=== PATIENT | female | born 1975 | race Caucasian/White ===

== ENCOUNTER 2017-12-12 11:39 | Emergency (ER) | payer OTHER ==
--- OUTSIDE RECORDS SUMMARY | 2017-12-12 11:44 | XMS REPORT ---
:1975 Author Organization e[employer] Care Team Providers Name Role Phone Shiva Mai Provider Role Unavailable Allergies, Adverse Reactions, Alerts Substance Reaction Event Type erythromycin Info Not Available Drug Allergy Problems Problem Type Condition Code Onset Dates Condition Status Assessment Morbid obesity E66.01 Active Problem Morbid obesity E66.01 Active Problem Encounter for preprocedural Z01.810 Active cardiovascular examination Problem Essential hypertension I10 Active Assessment Essential hypertension I10 Active Assessment Encounter for preprocedural Z01.810 Active cardiovascular examination Problem Chest pain, unspecified type R07.9 Active Assessment Chest pain, unspecified type R07.9 Active Medications Medication Code Code Instructions Start End Status Dosage System Date Date hydrochlorothiaz [facility] [place] 2] 87458292478 12.5 mg-20 mg Inactive 1 tab(s) henna-lisinopril orally once a day Metoprolol [facility] [place]NOTE 2] 29264002335 50 mg orally Active 1 tab(s) Succinate ER once a day hydrochlorothiaz [facility] [place]NOTE 2] 23819406287 12.5 mg-10 mg Jun 21, Active 1 tab(s) henna-lisinopril orally once a 2018 day levothyroxine [facility] [place]NOTE 2] 62894942307 100 mcg (0.1 Active 1 tab(s) mg) orally once a day benzonatate [facility] [place]NOTE 2] 19269562641 200 mg orally 3 Active 1 cap(s) times a day Vital Signs Date/Time: Jun 21, 2017 Blood Pressure Diastolic 70 mm Hg Blood Pressure Systolic 110 mm Hg Weight 265 lbs BMI 48.46 Index Height 62 in Results No Known Results Summary Purpose eClinicalWorks Submission
--- OUTSIDE RECORDS SUMMARY | 2017-12-12 11:44 | XMS REPORT | Summary of Care ---
:1975 Author Organization [facility] Address [address] [place] [address]- Encounter HQ Encntr_alias(FIN) [id number] Date(s): 04/11/17 - 04/11/[address] [address]- Discharge Disposition: Home or Self Care Attending Physician: Terence Grove MD Referring Physician: Terence Grove MD Vital Signs No data available for this section Problem List No data available for this section Allergies, Adverse Reactions, Alerts No data available for this section Medications No data available for this section Results No data available for this section Immunizations No data available for this section Procedures No data available for this section Social History No data available for this section Assessment and Plan No data available for this section
--- OUTSIDE RECORDS SUMMARY | 2017-12-12 11:44 | XMS REPORT | Summary of Care ---
:[address] [facility] Address [address] [place] [id number]- Encounter HQ Encntr_alias(FIN) [id number] Date(s): 06/08/17 - 06/08/[address] [address]- Encounter Diagnosis Morbid (severe) obesity due to excess calories (Final) - 06/13/17 Discharge Disposition: Home or Self Care Attending [...]
--- OUTSIDE RECORDS SUMMARY | 2017-12-12 11:44 | XMS REPORT | Summary of Care ---
:1975 Author Organization [facility] Address [address] [place] [address]- Encounter HQ Wilmer(FIN) [id number] Date(s): 06/23/17 - 06/23/[address] [address]- Encounter Diagnosis Gastro-esophageal reflux disease without esophagitis (Final) - 06/29/17 Essential (primary) hypertension (Final) - Hypothyroidism, unspecified (Final) - Discharge Disposition: Home or Self Care Attending Physician: Terence Grove MD Admitting Physician: Terence Grove MD Referring Physician: Terence Grove MD Vital Signs Most recent to oldest 1 2 3 [Reference Range]: Height 154.94 cm 154.94 cm 154.94 cm (06/23/17 12:39 PM) (06/23/17 12:38 PM) (06/23/17 11:04 AM) Weight 261 kg 261 kg 118.636 kg (06/23/17 12:39 PM) (06/23/17 12:38 PM) (06/23/17 11:04 AM) Body Mass Index 108.72 m2 108.72 m2 49.42 m2 (06/23/17 12:39 PM) (06/23/17 12:38 PM) (06/23/17 11:04 AM) Problem List No data available for this section Allergies, Adverse Reactions, Alerts No data available for this section Medications hydrochlorothiazide-lisinopril 12.5 mg-20 mg oral tablet 1 tab, PO, Daily, 0 Refill(s) Start Date: 06/23/17 Status: Orderedlevothyroxine 100 microgram, Daily, 0 Refill(s) Start Date: 06/23/17 Status: Orderedmetoprolol extended release 50 mg, PO, Daily, 0 Refill(s) Start Date: 06/23/17 Status: Ordered Results No data available for this section Immunizations No data available for this section Procedures No data available for this section Social History No data available for this section Assessment and Plan No data available for this section
--- OUTSIDE RECORDS SUMMARY | 2017-12-12 11:44 | XMS REPORT | Summary of Care ---
:1975 Author Organization [facility] Address [address] [place] [address]- Encounter HQ Encntr_aliirina(FIN) [id number] Date(s): 07/11/17 - 07/11/[address] [address]- Encounter Diagnosis Morbid (severe) obesity due to excess calories (Final) - 07/17/17 Body mass index (BMI) 45.0-49.9, adult (Final) - Dietary counseling and surveillance (Final) - Discharge Disposition: Home or Self [...]
--- OUTSIDE RECORDS SUMMARY | 2017-12-12 11:44 | XMS REPORT | Continuity of Care Document ---
:1975 Author Organization Interface Problems Problem Status Onset Classification Date Comments Source Date Reported Morbid obesity due 07/19/19 10/17/2017 [facility] to excess calories [address] [place] [address] Gastro-esophageal 07/01/19 09/29/2017 [facility] reflux disease [address] [place] [address] without esophagitis [id number] GERD Active 06/16/[address] BARIATRIC FOLLOW Active 06/08/19 [facility] UP [address] [place] [address] MORBID OBESITY Active 04/06/[address] Essential 09/29/2017 [facility] hypertension [facility] Hypothyroidism, 09/29/2017 [facility] unspecified [facility] Body mass index 10/17/2017 [facility] 45.0-49.9, adult [facility] Dietary counseling 10/17/2017 [facility] Morbid obesity Active Diagnosis 07/21/2017 [facility] Encounter for Active Problem 07/21/2017 [facility] cardiovascular examination Chest pain, Active Problem 07/21/2017 [facility] unspecified type Care Medications Medication Details Route Status Patient Ordering Order Source Instructions Provider Date Hydrochlorothiazide 1 tab, Active 12.5 MG / Lisinopril PO, 2017 [facility] 20 MG Oral Tablet Daily, 0 [facility] Refill(s) metoprolol extended 50 mg, Active release PO, 2017 [facility] Daily, 0 [facility] Refill(s) Thyroxine 100 Active microgram [address] [place] [address] , Daily, [facility] 0 Refill(s) hydrochlorothiazide-l 1 tab(s) orally Active 12.5 mg-10 mg Brown 06/21/ Comp isinopril orally once a 2018 [facility] hydrochlorothiazide-l 1 tab(s) orally Active 12.5 mg-20 mg [facility] isinopril orally once a [facility] Metoprolol Succinate 1 tab(s) orally Active 50 mg orally [facility] ER once a day [facility] levothyroxine 1 tab(s) orally Active 100 mcg (0.1 [facility] Comp mg) orally Heart once a day Care benzonatate 1 cap(s) orally Active 200 mg orally [facility] Comp 3 times a day [facility] Allergies, Adverse Reactions, Alerts Substance Category Reaction Severity Reaction Status Date Comments Source type Reported erythromycin Adverse Info Not Adverse Active Comp Reaction Available Reaction 8 [facility] Immunizations Immunization Date Given Site Status Last Updated Comments Source Results Order Results Value Reference Date Interpretation Comments Source Name Range Vital Signs Vital Sign Value Date Comments Source BMI Calculated 108.72 06/23/[address] [facility] Weight 261 06/23/[address] [facility] Height 154.94 cm 06/23/[address] [facility] BMI Calculated 108.72 06/23/[address] [facility] Weight 261 06/23/[address] [facility] Height 154.94 cm 06/23/[address] [facility] Weight 118.636 06/23/[address] [facility] Height 154.94 cm 06/23/[address] [facility] BMI Calculated 49.42 06/23/[address] [facility] Diastolic (mm Hg) 70 06/21/2017 [facility] Systolic (mm Hg) 110 06/21/2017 [facility] Weight 265 06/21/2017 [facility] Height 62 06/21/2017 [facility] Encounters Location Location Encounter Encounter Reason Attending ADM DC Status Source Details Type Number For Provider Date Date [facility] [id number] Terence 04/11 04/12 [facility] /2016 [facility] [id number] Terence 06/08 06/09 [facility] /2017 [facility] Bedded [id number] Terence 06/23 06/23 [facility] /2017 [facility] [id number] Terence 07/11 07/12 [facility] /2017 [facility] Procedures Procedure Code Date Perfomer Comments Source
[2017-12-12] MEDS ORDERED: FAMOTIDINE 20 MG/2 ML VIAL IV ONE (12:27)
[2017-12-12] MEDS ORDERED: ONDANSETRON 4 MG/2 ML VIAL ONE (12:27)
[2017-12-12] MEDS ORDERED: NA CHLORIDE 0.9% 1,000 ML ONE (12:27)
[2017-12-12 12:44] LABS: Absolute Lymphocytes (CBC) 2.4 K/uL (0.7-4.9); Absolute Monocytes 0.5 K/uL (0.1-1.3); Absolute Neutrophil 5.9 K/uL (1.8-8.0); Basophils % 1.3 % (0-1.3); Eosinophils % 1.4 % (0-4.4); Hematocrit 39.1 % (36.0-45.0); Lymphocytes % 26.4 % (15.3-44.8); MCH 27.2 pg (27.0-35.0); MCV 82.9 fL (80-100); MPV 8.6 fL (7.6-11.3); Monocytes % 5.3 % (3.3-12.3); RBC Red Blood Cell Count 4.71 M/uL (3.86-4.86)
--- NOTE | 2017-12-12 12:44 | RAD REPORT ---
EXAM DESCRIPTION: US - Abdomen Exam Limited - 12/12/2017 12:39 pm CLINICAL HISTORY: Abd pain;Abdominal distention COMPARISON: No comparisons FINDINGS: The gallbladder demonstrates no gallstones. The gallbladder is partially contracted. No pe richolecystic fluid or gallbladder wall thickening. The common bile duct is normal measuring 4 mm. The liver demonstrates no findings of intrahepatic biliary dilatation. IMPRESSION: Unremarkable examination.
--- NOTE | 2017-12-12 12:44 | EKG ---
Test Date: 2017-12-12 Test Time: 12:18:15 Vehicle Glass Technician: CRISTIAN MEASUREMENT RESULTS: Intervals: Rate: 86 PA: 132 QRSD: 98 QT: 370 QTc: 442 [place]: P: 20 PA: 132 QRS: 19 T: 30 INTERPRETIVE STATEMENTS: Normal sinus rhythm Normal ECG Compared to ECG 02/10/2017 09:48:15 No significant changes Electronically Signed On 12-12-17 12:43:56 CDT by Samson Suarez
[2017-12-12 12:58] LABS: Protime INR 1.04
--- NOTE | 2017-12-12 13:01 | RAD REPORT ---
EXAM DESCRIPTION: RAD - Chest Single View - 12/12/2017 12:53 pm CLINICAL HISTORY: Abdominal distention;Cough Chest pain. COMPARISON: CHEST PA AND LAT 2 VIEW dated 11/03/2014; CHEST SINGLE VIEW dated 10/18/2013 FINDINGS: Portable technique limits examination quality. The lungs are grossly clear. The heart is normal in size. No displaced fractures. IMPRESSION: No acute intrathoracic process suspected.
[2017-12-12 13:15] LABS: ALT/SGPT 34 U/L (12-78); AST/SGOT 31 U/L (15-37); Alkaline Phosphatase 74 U/L (45-117); BUN Blood Urea Nitrogen 13 mg/dL (7-18); Bicarbonate 31 mmol/L (21-32); Bilirubin Direct < 0.1 mg/dL (0-0.2); Bilirubin Total 0.3 mg/dL (0.2-1.0); CKMB Creatine Kinase MB < 1.0 ng/mL (0.3-3.6); Creatine Phosphokinase 65 U/L (26-192); Glucose Level 235 mg/dL (74-106); Lipase 102 U/L (73-393); NT PRO-BNP 44 pg/mL (<125); Protein, Total 7.8 g/dL (6.4-8.2); Sodium Level 139 mmol/L (136-145)
--- NOTE | 2017-12-12 13:30 | ER ---
Nurse's Notes [facility] Name: Haydee Pandey Age: 42 yrs Sex: Female : 1975 Arrival Date: 12/12/2017 Time: 11:44 Bed 23 Private MD: Shiva Howard E Diagnosis: Dizziness and giddiness;Nausea Presentation: 12/12 11:47 Presenting complaint: Patient states: " I have been having dizziness and nausea for a ph few days. I just got off of my menstrual cycle and it was really heavy so I think that may have something to do w/ it." Pt reports intermittent dizziness, nausea, and acid reflux, also reports diarrhea, denies pain. Transition of care: patient was not received from another setting of care. Onset of symptoms was December 12, 2017. Risk Assessment: Do you want to hurt yourself or someone else? Patient reports no desire to harm self or others. Initial Sepsis Screen: Does the patient meet any 2 criteria? No. Patient's initial sepsis screen is negative. Does the patient have a suspected source of infection? No. Patient's initial sepsis screen is negative. Care prior to arrival: None. 11:47 Method Of Arrival: Ambulatory ph 11:47 Acuity: ELA 3 ph STENCIL CUTTER: 11:50 LMP 12/09/2017 ph Historical: - Allergies: 11:50 Erythromycin; ph - Home Meds: 11:50 metoprolol tartrate 50 mg Oral tab 1 tab daily [Active]; levothyroxine 100 mcg tab 1 ph tab once daily [Active]; - PMHx: 11:50 Hypertension; Hypothyroidism; ph - PSHx: 11:50 ; I\\T\\D; ph - Immunization history:: Adult Immunizations unknown. - Social history:: Smoking status: Patient/guardian denies using tobacco. - Ebola Screening: : No symptoms or risks identified at this time. Screenin:20 Abuse screen: Denies threats or abuse. Denies injuries from another. Nutritional ss screening: No deficits noted. Tuberculosis screening: Never had TB. Fall Risk None identified. Assessment: 12:20 General: Appears in no apparent distress. comfortable, Behavior is calm, cooperative, ss Reports feeling ill for fatigue for x 1 week. Denies fever. Pain: Complains of pain in right upper quadrant and epigastric area Pain currently is 7 out of 10 on a pain scale. Quality of pain is described as aching, tender, Pain began 1 week ago, has gotten progressively worse. Is continuous. Neuro: Level of Consciousness is awake, alert, Oriented to person, place, time, situation. Cardiovascular: Heart tones S1 S2 present Capillary refill < 3 seconds is brisk in bilateral fingers Patient's skin is warm and dry. Respiratory: Airway is patent Respiratory effort is even, unlabored, Respiratory pattern is regular, symmetrical. GI: Abdomen is non-distended, obese, Reports nausea, diarrhea. : No signs and/or symptoms were reported regarding the genitourinary system. Denies burning with urination, urinary frequency. EENT: Nares are clear Oral mucosa is moist. Throat is clear. Derm: Skin is intact, is healthy with good turgor, Skin is dry, Skin is pink, warm \\T\\ dry. normal. Musculoskeletal: Circulation, motion, and sensation intact. Range of motion: intact in all extremities. 13:00 Reassessment: Patient appears in no apparent distress at this time. Patient and/or kr2 family updated on plan of care and expected duration. Pain level reassessed. Patient is alert, oriented x 3, equal unlabored respirations, skin warm/dry/pink. Patient states feeling better. Vital Signs: 11:50 BP 153 / 86; Pulse 96; Resp 18; Temp 97.6; Pulse Ox 97% on R/A; Weight 117.93 kg; ph Height 5 ft. 1 in. (154.94 cm); 13:48 BP 122 / 72; Pulse 90; Resp 18; Pulse Ox 98% on R/A; kr2 11:50 Body Mass Index 49.13 (117.93 kg, 154.94 cm) ph ED Course: 11:44 Patient arrived in ED. sb2 11:44 Shiva Howard MD is Private Physician. sb2 11:49 Triage completed. ph 11:51 Arm band placed on. ph 12:01 Flaco Andrews MD is Attending Physician. lexi 12:16 Lo Malave, RN is Primary Nurse. dm5 12:20 Patient has correct armband on for positive identification. Bed in low position. Call ss light in reach. Side rails up X 1. Adult w/ patient. 12:32 EKG done, by technical support specialist. reviewed by Flaco Andrews MD. at1 12:34 Inserted saline lock: 22 gauge in right antecubital area, using aseptic technique. dm5 Blood collected. 12:37 Ultrasound completed. Patient tolerated well. aa4 12:38 US Abdomen Limited In Process Unspecified. EDMS 12:52 X-ray completed. Portable x-ray completed in exam room. Patient tolerated procedure ml well. 12:54 XRAY Chest (1 view) In Process Unspecified. EDMS 13:29 Shiva Howard MD is Referral Physician. [facility] 13:47 No provider procedures requiring assistance completed. IV discontinued, intact, kr2 bleeding controlled, No redness/swelling at site. Pressure dressing applied. Administered Medications: 12:32 Drug: Zofran 4 mg Route: IVP; Site: right antecubital; dm5 13:46 Follow up: Response: Nausea is decreased kr2 12:33 Drug: NS 0.9% 1000 ml Route: IV; Rate: 1 bolus; Site: right antecubital; dm5 13:46 Follow up: Response: No adverse reaction; IV Status: Completed infusion kr2 12:33 Drug: Pepcid 20 mg Route: IVP; Site: right antecubital; dm5 13:46 Follow up: Response: No adverse reaction kr2 13:46 Drug: Meclizine 25 mg Route: PO; kr2 13:47 Follow up: Response: Medication administered at discharge. kr2 Outcome: 13:30 Discharge ordered by . [facility] 13:47 Discharged to home ambulatory, with family. kr2 13:47 Condition: good 13:47 Discharge instructions given to patient, family, Instructed on discharge instructions, follow up and referral plans. medication usage, Demonstrated understanding of instructions, follow-up care, medications, Prescriptions given X 2. 13:53 Patient left the ED. kr2 Signatures: Dispatcher [employer] EDMS Lo Malave, RN RN dmFlaco Escobar MD MD cha Lopez, Melissa ml Frazier, Amanda aa4 Cata Kaur RN RN ss Gonzales, Amanda, share holder EKG Tat1 Eveline Emery RN RN Valentina Watson RN RN kr2 Joseline Dominguez sb2
--- NOTE | 2017-12-12 13:31 | EDPHYS ---
Physician Documentation [facility] Name: Haydee Pandey Age: 42 yrs Sex: Female : 1975 Arrival Date: 12/12/2017 Time: 11:44 Bed 23 Private MD: Shiva Howard E ED Physician Flaco Andrews HPI: 12/12 12:15 This 42 yrs old Female presents to ER via Ambulatory with complaints of lexi Dizziness, Nausea. 12:15 The patient presents with dizziness. Onset: The symptoms/episode began/occurred 5 lexi day(s) ago. Context: occurred at an unknown location. Modifying factors: The symptoms are alleviated by nothing, the symptoms are aggravated by standing up. ZIPPER TRIMMER: 11:50 LMP 12/09/2017 ph Historical: - Allergies: 11:50 Erythromycin; ph - Home Meds: 11:50 metoprolol tartrate 50 mg Oral tab 1 tab daily [Active]; levothyroxine 100 mcg tab 1 ph tab once daily [Active]; - PMHx: 11:50 Hypertension; Hypothyroidism; ph - PSHx: 11:50 ; I\T\D; ph - Immunization history:: Adult Immunizations unknown. - Social history:: Smoking status: Patient/guardian denies using tobacco. - Ebola Screening: : No symptoms or risks identified at this time. ROS: 12:19 Constitutional: Negative for fever, chills, and weight loss, Eyes: Negative for injury, lexi pain, redness, and discharge, ENT: Negative for injury, pain, and discharge, Neck: Negative for injury, pain, and swelling, Cardiovascular: Negative for chest pain, palpitations, and edema, Respiratory: Negative for shortness of breath, cough, wheezing, and pleuritic chest pain, Back: Negative for injury and pain, : Negative for injury, bleeding, discharge, and swelling, MS/Extremity: Negative for injury and deformity, Skin: Negative for injury, rash, and discoloration, Psych: Negative for depression, anxiety, suicide ideation, homicidal ideation, and hallucinations, Allergy/Immunology: Negative for hives, rash, and allergies, Endocrine: Negative for neck swelling, polydipsia, polyuria, polyphagia, and marked weight changes, Hematologic/Lymphatic: Negative for swollen nodes, abnormal bleeding, and unusual bruising. 12:19 Respiratory: Positive for 12:19 Abdomen/GI: Positive for abdominal pain, nausea, vomiting, of the epigastric area and right upper quadrant. 12:19 Neuro: Positive for dizziness. Exam: 12:19 Constitutional: This is a well developed, well nourished patient who is awake, alert, lexi and in no acute distress. Head/Face: Normocephalic, atraumatic. Eyes: Pupils equal round and reactive to light, extra-ocular motions intact. Lids and lashes normal. Conjunctiva and sclera are non-icteric and not injected. Cornea within normal limits. Periorbital areas with no swelling, redness, or edema. ENT: Nares patent. No nasal discharge, no septal abnormalities noted. Tympanic membranes are normal and external auditory canals are clear. Oropharynx with no redness, swelling, or masses, exudates, or evidence of obstruction, uvula midline. Mucous membranes moist. Neck: Trachea midline, no thyromegaly or masses palpated, and no cervical lymphadenopathy. Supple, full range of motion without nuchal rigidity, or vertebral point tenderness. No Meningismus. Chest/axilla: Normal chest wall appearance and motion. Nontender with no deformity. No lesions are appreciated. Cardiovascular: Regular rate and rhythm with a normal S1 and S2. No gallops, murmurs, or rubs. Normal PMI, no JVD. No pulse deficits. Respiratory: Lungs have equal breath sounds bilaterally, clear to auscultation and percussion. No rales, rhonchi or wheezes noted. No increased work of breathing, no retractions or nasal flaring. Back: No spinal tenderness. No costovertebral tenderness. Full range of motion. Female : Normal external genitalia. Skin: Warm, dry with normal turgor. Normal color with no rashes, no lesions, and no evidence of cellulitis. MS/ Extremity: Pulses equal, no cyanosis. Neurovascular intact. Full, normal range of motion. Neuro: Awake and alert, GCS 15, oriented to person, place, time, and situation. Cranial nerves II-XII grossly intact. Motor strength 5/5 in all extremities. Sensory grossly intact. Cerebellar exam normal. Normal gait. Psych: Awake, alert, with orientation to person, place and time. Behavior, mood, and affect are within normal limits. 12:19 Respiratory: the patient does not display signs of respiratory distress, Respirations: normal, Breath sounds: are clear throughout, Respiratory rate: 18 12:19 Abdomen/GI: Inspection: distension, Bowel sounds: normal, Palpation: mild abdominal tenderness, in the epigastric area and right upper quadrant, Liver: no appreciated palpable abnormalities, Hernia: not appreciated. 12:21 Musculoskeletal/extremity: DVT Exam: No signs of deep vein thrombosis. no pain, no lexi swelling, no tenderness, negative Homans' sign noted on exam, no appreciated bluish discoloration, no erythema, no increased warmth. Vital Signs: 11:50 BP 153 / 86; Pulse 96; Resp 18; Temp 97.6; Pulse Ox 97% on R/A; Weight 117.93 kg; ph Height 5 ft. 1 in. (154.94 cm); 13:48 BP 122 / 72; Pulse 90; Resp 18; Pulse Ox 98% on R/A; kr2 11:50 Body Mass Index 49.13 (117.93 kg, 154.94 cm) ph MDM: 12:01 Patient medically screened. [facility] 12:21 Data reviewed: vital signs, nurses notes, lab test result(s), EKG, radiologic studies, [facility] plain films, ultrasound. 12/12 12:15 Order name: Basic Metabolic Panel; Complete Time: 13:28 [facility] 12/12 12:15 Order name: CBC with Diff; Complete Time: 13:28 [facility] 12/12 12:15 Order name: Ckmb; Complete Time: 13:28 [facility] 12/12 12:15 Order name: CPK; Complete Time: 13:28 [facility] 12/12 12:15 Order name: LFT's; Complete Time: 13:28 [facility] 12/12 12:15 Order name: Magnesium; Complete Time: 13:28 [facility] 12/12 12:15 Order name: NT PRO-BNP; Complete Time: 13:28 [facility] 12/12 12:15 Order name: PT-INR; Complete Time: 13:28 [facility] 12/12 12:15 Order name: Ptt, Activated; Complete Time: 13:28 [facility] 12/12 12:15 Order name: Troponin (emerg Dept Use Only); Complete Time: 13:28 [facility] 12/12 12:15 Order name: Lipase; Complete Time: 13:28 [facility] 12/12 12:15 Order name: Urine Culture [facility] 12/12 12:26 Order name: Urine Dipstick--Ancillary (enter results) [facility] 12/12 12:28 Order name: Urine --Ancillary (enter results) [facility] 12/12 12:15 Order name: XRAY Chest (1 view); Complete Time: 13:28 [facility] 12/12 12:15 Order name: EKG; Complete Time: 12:16 [facility] 12/12 12:15 Order name: Cardiac monitoring; Complete Time: 12:34 [facility] 12/12 12:15 Order name: EKG - Nurse/Tech; Complete Time: 12:34 [facility] 12/12 12:15 Order name: IV Saline Lock; Complete Time: 12:34 [facility] 12/12 12:15 Order name: Labs collected and sent; Complete Time: 12:34 [facility] 12/12 12:15 Order name: O2 Per Protocol; Complete Time: 12:34 [facility] 12/12 12:15 Order name: O2 Sat Monitoring; Complete Time: 12:34 [facility] 12/12 12:15 Order name: Urine Dipstick-Ancillary (obtain specimen); Complete Time: 12:17 [facility] 12/12 12:15 Order name: US Abdomen Limited; Complete Time: 13:28 [facility] Administered Medications: 12:32 Drug: Zofran 4 mg Route: IVP; Site: right antecubital; dm5 13:46 Follow up: Response: Nausea is decreased kr2 12:33 Drug: NS 0.9% 1000 ml Route: IV; Rate: 1 bolus; Site: right antecubital; dm5 13:46 Follow up: Response: No adverse reaction; IV Status: Completed infusion kr2 12:33 Drug: Pepcid 20 mg Route: IVP; Site: right antecubital; dm5 13:46 Follow up: Response: No adverse reaction kr2 13:46 Drug: Meclizine 25 mg Route: PO; kr2 13:47 Follow up: Response: Medication administered at discharge. kr2 Disposition: 12/12/17 13:30 Discharged to Home. Impression: Dizziness and giddiness, Nausea. - Condition is Stable. - Discharge Instructions: Dizziness, Nausea and Vomiting, Adult, Nausea, Adult, Aspirin and Your Heart, Dizziness, [id number]. - Prescriptions for Meclizine 25 mg Oral Tablet - take 1 tablet by ORAL route every 8 hours As needed; 30 tablet. Zofran 4 mg Oral Tablet - take 1 tablet by ORAL route every 12 hours As needed; 20 tablet. - Medication Reconciliation Form, Thank You Letter, Antibiotic Education, Prescription Opioid Use, Work release form form. - Follow up: Shiva Howard MD; When: 2 - 3 days; Reason: Recheck today's complaints, Continuance of care, Re-evaluation by your physician. - Problem is new. - Symptoms have improved. Signatures: Dispatcher [employer] EDMS Lo Malave, RN RN dm5 Flaco Andrews MD MD cha Hall, Patricia RN RN ph Valentina Sands RN RN kr2 Corrections: (The following items were deleted from the chart) 13:30 13:30 12/12/2017 13:30 Discharged to Home. Impression: Dizziness and giddiness; Nausea; lexi Obesity, unspecified. Condition is Stable. Forms are Medication Reconciliation Form, Thank You Letter, Antibiotic Education, Prescription Opioid Use. Follow up: Shiva Howard; When: 2 - 3 days; Reason: Recheck today's complaints, Continuance of care, Re-evaluation by your physician. Problem is new. Symptoms have improved. lexi 13:53 13:30 12/12/2017 13:30 Discharged to Home. Impression: Dizziness and giddiness; Nausea. kr2 Condition is Stable. Forms are Medication Reconciliation Form, Thank You Letter, Antibiotic Education, Prescription Opioid Use. Follow up: Shiva Howard; When: 2 - 3 days; Reason: Recheck today's complaints, Continuance of care, Re-evaluation by your physician. Problem is new. Symptoms have improved. lexi
[2017-12-12] MEDS ORDERED: MECLIZINE HCL 12.5 MG TAB ONE (13:38)
[2017-12-12 13:59] VITALS: TEMP 97.6
[2017-12-12 14:00] VITALS: BP 122/72; O2SAT 98
[2017-12-12 16:00] LABS: Urine Blood 2+ (NEG); Urine Glucose NEGATIVE (NEG); Urine Protein NEGATIVE (NEG); Urine Specific Gravity >1.030 (1.005-1.030); Urine pH 5.5 (5.0-7.0)
== END 2017-12-12 13:53 | disposition home or self-care (01) ==
LOC: ER 11:39
DX: R11.0 Nausea (principal); I10 Essential (primary) hypertension; E03.9 Hypothyroidism, unspecified; Z88.3 Allergy status to other anti-infective agents
CPT/HCPCS: 36415; 71045; 76705; 80048; 80076; 81003; 81025; 82550; 82553; 83690; 83735; 83880; 84484; 85025; 85610; 85730; 87086; 87088; 93005; 96361; 96374; 96375; 99284; J2405; J7030

== ENCOUNTER 2018-02-21 10:46 | Observation (INO) | payer OTHER ==
--- OUTSIDE RECORDS SUMMARY | 2018-02-21 10:49 | XMS REPORT ---
[...] End Status Dosage System Date Date hydrochlorothiaz [facility] [id number] 12.5 mg-20 mg Inactive 1 tab(s) henna-lisinopril orally once a day Metoprolol [facility] [id number] 50 mg orally Active 1 tab(s) Succinate ER once a day hydrochlorothiaz [facility] [id number] 12.5 mg-10 mg Jun 21, Active 1 tab(s) henna-lisinopril orally once a 2018 day levothyroxine [facility] [id number] 100 mcg (0.1 Active 1 tab(s) mg) orally once a day benzonatate [facility] [id number] 200 mg orally 3 Active 1 cap(s) times a day Vital Signs Date/Time: Jun 21, 2017 Blood Pressure Diastolic 70 mm Hg Blood Pressure Systolic 110 mm Hg Weight 265 lbs BMI 48.46 Index Height 62 in Results No Known Results Summary Purpose eClinicalWorks Submission
--- OUTSIDE RECORDS SUMMARY | 2018-02-21 10:49 | XMS REPORT | Continuity of Care Document ---
:1975 Author Organization Interface Problems Problem Status Onset Classification Date Comments Source Date Reported Morbid obesity due 07/19/19 10/17/2017 [facility] to excess calories [address] [place] [address] Gastro-esophageal 07/01/19 09/29/2017 [facility] reflux disease [address] [place] [address] without esophagitis [id number] Active 06/16/[address] BARIATRIC FOLLOW Active 06/08/19 [facility] UP [address] [place] [address] MORBID OBESITY Active 04/06/[address] Body mass index 10/17/2017 [facility] 45.0-49.9, adult [facility] Dietary counseling 10/17/2017 [facility] and surveillance [facility] Essential 09/29/2017 [facility] hypertension [facility] Hypothyroidism, 09/29/2017 [facility] unspecified [facility] Morbid obesity Active Diagnosis 07/21/2017 [facility] Encounter for Active Problem 07/21/2017 [facility] preprocedural Care cardiovascular examination Chest pain, Active Problem 07/21/2017 [facility] unspecified type Care Medications Medication Details Route Status Patient Ordering Order Source Instructions Provider Date Hydrochlorothiazide 1 tab, Active 12.5 MG / Lisinopril PO, 2017 [facility] 20 MG Oral Tablet Daily, 0 [facility] Refill(s) metoprolol extended 50 mg, Active release PO, 2017 [facility] Daily, 0 [facility] Refill(s) Thyroxine 100 Active microgram [address] [place] [address] , Daily, [facility] 0 Refill(s) hydrochlorothiazide-l 1 tab(s) orally Active 12.5 mg-10 mg Brown 06/21/ Comp isinopril orally once a 2018 [facility] hydrochlorothiazide-l 1 tab(s) orally Active 12.5 mg-20 mg [facility] isinopril orally once a Heart day [...] Comments Source BMI Calculated 108.72 06/23/2017 [facility] Weight 261 06/23/2017 [facility] Height 154.94 cm 06/23/2017 [facility] BMI Calculated 108.72 06/23/2017 [facility] Weight 261 06/23/2017 [facility] Height 154.94 cm 06/23/2017 [facility] Weight 118.636 06/23/2017 [facility] Height 154.94 cm 06/23/2017 [facility] BMI Calculated 49.42 06/23/2017 [facility] Diastolic (mm Hg) 70 06/21/2017 [facility] Systolic (mm Hg) 110 06/21/2017 [facility] Weight 265 06/21/2017 [facility] Height 62 06/21/2017 [facility] Encounters Location Location Encounter Encounter Reason Attending ADM DC Status Source Details Type Number For Provider Date Date [facility] [id number] Terence 04/11 04/12 [facility] /2016 [facility] Outpatient [id number] Terence 06/08 06/09 [facility] /2017 [facility] Bedded [id number] Terence 06/23 06/23 [facility] Perfceto /2017 [facility] Outpatient [id number] Terence 07/11 07/12 [facility] /2017 [facility] Procedures Procedure Code Date Perfomer Comments Source
[2018-02-21] MEDS ORDERED: ASPIRIN 81 MG CHEWABLE TABLET ONE (11:17)
[2018-02-21] MEDS ORDERED: METOPROLOL TAR 25 MG TAB ONE (11:18)
[2018-02-21] MEDS ORDERED: METOPROLOL TARTRATE 5 MG/5 ML INJ IV ONE ×2 (11:18→13:41)
[2018-02-21 11:30] LABS: Absolute Lymphocytes (CBC) 2.3 K/uL (0.7-4.9); Absolute Monocytes 0.6 K/uL (0.1-1.3); Absolute Neutrophil 4.9 K/uL (1.8-8.0); Eosinophils % 2.4 % (0-4.4); Hematocrit 39.5 % (36.0-45.0); Lymphocytes % 28.7 % (15.3-44.8); MCH 27.2 pg (27.0-35.0); MCV 82.9 fL (80-100); MPV 8.7 fL (7.6-11.3); Monocytes % 7.4 % (3.3-12.3); RBC Red Blood Cell Count 4.76 M/uL (3.86-4.86)
[2018-02-21 11:31] LABS: Protime INR 1.01
[2018-02-21 11:41] LABS: ALT/SGPT 45 U/L (12-78); AST/SGOT 31 U/L (15-37); Albumin 3.3 g/dL (3.4-5.0); Alkaline Phosphatase 75 U/L (45-117); BUN Blood Urea Nitrogen 13 mg/dL (7-18); Bicarbonate 29 mmol/L (21-32); Bilirubin Direct < 0.1 mg/dL (0-0.2); Bilirubin Total 0.3 mg/dL (0.2-1.0); Glucose Level 103 mg/dL (74-106); Magnesium 2.1 mg/dL (1.8-2.4); NT PRO-BNP 34 pg/mL (<125); Potassium 3.7 mmol/L (3.5-5.1); Sodium Level 140 mmol/L (136-145); Troponin (Emerg Dept Use Only) < 0.02 ng/mL (0.0-0.045)
[2018-02-21] MEDS ORDERED: NITROGLYCERIN 0.4 MG/TAB SL ONE (12:11)
--- NOTE | 2018-02-21 12:19 | RAD REPORT ---
EXAM DESCRIPTION: RAD - Chest Single View - 02/21/2018 11:36 am CLINICAL HISTORY: Chest pain COMPARISON: February 11 TECHNIQUE: AP portable chest image was obtained 1132 hours . FINDINGS: Lung volumes are low. No peripheral mass, consolidation or failure. Trachea is midline. He art and vasculature are normal. No measurable pleural effusion and no pneumothorax. No acute bony abn ormality seen. No acute aortic findings suspected. IMPRESSION: No acute cardiopulmonary process. No significant change from comparison.
--- NOTE | 2018-02-21 12:42 | ER ---
Nurse's Notes [facility] Name: Haydee Pandey Age: 42 yrs Sex: Female : 1975 Arrival Date: 02/21/2018 Time: 10:48 Bed 16 Private MD: Shiva Howard E Diagnosis: Chest pain, unspecified Presentation: 02/21 10:50 Presenting complaint: Patient states: upper midsternal/left sided chest pain with sv radiation to left neck and arm started this morning. Denies SOB, c/o nausea. Pt stated that she has been out of her Metoprolol for a week. Transition of care: patient was not received from another setting of care. Onset of symptoms was February 21, 2018. Care prior to arrival: None. 10:50 Method Of Arrival: Wheelchair sv 10:50 Acuity: ELA 2 sv 11:21 Risk Assessment: Do you want to hurt yourself or someone else? Patient reports no la1 desire to harm self or others. Initial Sepsis Screen: Does the patient meet any 2 criteria? No. Patient's initial sepsis screen is negative. Does the patient have a suspected source of infection? No. Patient's initial sepsis screen is negative. Triage Assessment: 11:04 General: Appears in no apparent distress. Behavior is calm, cooperative. Pain: la1 Complains of pain in chest and left arm. Neuro: Level of Consciousness is awake, alert, obeys commands, Oriented to person, place, time, situation. Cardiovascular: Denies shortness of breath, syncope, vomiting, Heart tones S1 S2 present. Cardiovascular: Rhythm is sinus rhythm Chest pain began 4 hours prior to arrival. Respiratory: Airway is patent Breath sounds are clear bilaterally. GI: No signs and/or symptoms were reported involving the gastrointestinal system. : No signs and/or symptoms were reported regarding the genitourinary system. Historical: - Allergies: 10:57 Erythromycin; sv - PMHx: 10:57 Hypertension; Hypothyroidism; sv - PSHx: 10:57 ; I\T\D; sv - Immunization history:: Adult Immunizations up to date, Flu vaccine is not up to date. - Social history:: Smoking status: Patient/guardian denies using tobacco, Patient/guardian denies using alcohol. - Ebola Screening: : No symptoms or risks identified at this time. Screenin:03 Abuse screen: Denies threats or abuse. Nutritional screening: On. Tuberculosis la1 screening: No symptoms or risk factors identified. Fall Risk None identified. Assessment: 11:20 General: Appears in no apparent distress. Behavior is calm, cooperative. Pain: la1 Complains of pain in chest Pain radiates to left arm Pain began 4 hours ago. Neuro: Level of Consciousness is awake, alert, obeys commands, Oriented to person, place, time, situation. Cardiovascular: Heart tones S1 S2 present Capillary refill < 3 seconds Patient's skin is warm and dry. Rhythm is sinus rhythm. Respiratory: Airway is patent Respiratory effort is even, unlabored, Respiratory pattern is regular, symmetrical, Breath sounds are clear bilaterally. GI: No signs and/or symptoms were reported involving the gastrointestinal system. : No signs and/or symptoms were reported regarding the genitourinary system. Vital Signs: 10:57 BP 170 / 103; Pulse 92; Resp 20; Temp 98.1; Pulse Ox 97% ; Weight 120.2 kg; Height 5 sv ft. 2 in. (157.48 cm); Pain 7/10; 11:51 BP 156 / 106; Pulse 85; Resp 16; Pulse Ox 98% on R/A; la1 13:31 BP 155 / 103; Pulse 78; Resp 16; Pulse Ox 98% on R/A; la1 13:56 BP 146 / 94; Pulse 79; Resp 16; Pulse Ox 98% on R/A; la1 10:57 Body Mass Index 48.47 (120.20 kg, 157.48 cm) sv ED Course: 10:48 Patient arrived in ED. mr 10:49 Shiva Howard MD is Private Physician. mr 10:50 Arm band placed on Patient placed in an exam room, on pulse oximetry. sv 10:55 Flaco Brewster PA is PHCP. cp 10:55 Flaco Andrews MD is Attending Physician. cp 10:56 Triage completed. sv 10:59 Bhupinder Rosales, HUI is Primary Nurse. la1 11:04 Placed in gown. Bed in low position. Call light in reach. Side rails up X 1. Cardiac la1 monitor on. Pulse ox on. NIBP on. 11:04 Adult w/ patient. Pillow given. mh5 11:06 EKG done, by nuclear medicine pet ct technologist. reviewed by Flaco DIAS. dt2 11:17 Initial lab(s) drawn, by me, sent to lab. Inserted saline lock: 22 gauge in left 5 antecubital area, using aseptic technique. Blood collected. 11:21 No provider procedures requiring assistance completed. Patient maintains SpO2 la1 saturation greater than 95% on room air. 11:36 XRAY Chest (1 view) In Process Unspecified. EDMS 12:40 Radhika Moncada MD is Hospitalizing Provider. cp 13:57 Inserted saline lock: 22 gauge in right forearm, using aseptic technique. la1 14:07 Patient admitted, IV remains in place. la1 Administered Medications: 11:20 Drug: Metoprolol 25 mg Route: PO; la1 11:45 Follow up: Response: No adverse reaction la1 11:20 Drug: Lopressor 5 mg Route: IVP; Site: left antecubital; la1 11:45 Follow up: Response: No adverse reaction; Blood pressure is lowered la1 11:20 Drug: Aspirin Chewable Tablet 324 mg Route: PO; la1 11:46 Follow up: Response: No adverse reaction la1 12:06 Drug: Nitroglycerin 0.4 mg Route: Sublingual; la1 12:16 Follow up: Response: No adverse reaction; Pain is decreased la1 13:51 Drug: Lopressor 5 mg Route: IVP; Site: right forearm; la1 13:58 Follow up: Response: No adverse reaction; Blood pressure is lowered la1 Outcome: 12:41 Decision to Hospitalize by Provider. cp 14:08 Admitted to Tele accompanied by tech, via wheelchair, room 409, with chart. la1 14:08 Condition: stable 14:08 Instructed on the need for admit. 14:08 Patient left the ED. la1 Signatures: Dispatcher [employer] EDMS Roshni Perrin RN RN sv Rivera, Mary mr Attema, Lee, RN RN la1 Flaco Brewster PA PA cp [place] [id number] [address] Hess dt2
--- NOTE | 2018-02-21 12:42 | EDPHYS ---
Physician Documentation [facility] Name: Haydee Pandey Age: 42 yrs Sex: Female : 1975 Arrival Date: 02/21/2018 Time: 10:48 Bed 16 Private MD: Shiva Howard E ED Physician Flaco Andrews HPI: 02/21 11:05 This 42 yrs old Female presents to ER via Wheelchair with complaints of Chest cp Pain. 11:05 The patient or guardian reports chest pain that is located primarily in the anterior cp chest wall, left. 11:05 Onset: this morning. The pain radiates to the left arm, left jaw. Associated signs and cp symptoms: Pertinent negatives: abdominal pain, cough, lower extremity pain, lower extremity swelling, palpitations, shortness of breath, syncope, vomiting. The chest pain is described as aching. Duration: The patient or guardian reports a single episode, that is still ongoing. Historical: - Allergies: 10:57 Erythromycin; sv - PMHx: 10:57 Hypertension; Hypothyroidism; sv - PSHx: 10:57 ; I\T\D; sv - Immunization history:: Adult Immunizations up to date, Flu vaccine is not up to date. - Social history:: Smoking status: Patient/guardian denies using tobacco, Patient/guardian denies using alcohol. - Ebola Screening: : No symptoms or risks identified at this time. ROS: 11:10 Constitutional: Negative for body aches, chills, fever, poor PO intake. cp 11:10 Eyes: Negative for injury, pain, redness, and discharge. cp 11:10 ENT: Negative for drainage from ear(s), ear pain, sore throat, difficulty swallowing, difficulty handling secretions, hoarseness. 11:10 Neck: Negative for pain with movement, pain at rest, stiffness, tenderness. 11:10 Cardiovascular: Positive for chest pain, of the left side, Negative for edema, palpitations. 11:10 Respiratory: Negative for cough, shortness of breath, wheezing. 11:10 Abdomen/GI: Negative for abdominal pain, nausea, vomiting, and diarrhea, constipation, black/tarry stool, rectal bleeding. 11:10 Back: Negative for pain at rest, pain with movement, radiated pain. 11:10 Skin: Negative for cellulitis, rash. 11:10 Neuro: Negative for altered mental status, dizziness, headache, syncope, near syncope, weakness. 11:10 All other systems are negative. Exam: 11:10 ECG was reviewed by the Attending Physician. cp 11:15 Constitutional: The patient appears in no acute distress, alert, awake, cp non-diaphoretic, non-toxic, well developed, well nourished, obese. 11:15 Head/Face: Normocephalic, atraumatic. cp 11:15 Eyes: Periorbital structures: appear normal, Conjunctiva: normal, no exudate, no injection, Sclera: no appreciated abnormality, Lids and lashes: appear normal, bilaterally. 11:15 ENT: External ear(s): are unremarkable, Nose: is normal, Mouth: Lips: moist, Oral mucosa: pink and intact, moist, Posterior pharynx: is normal, airway is patent, no erythema, no exudate, Voice: is normal. 11:15 Neck: ROM/movement: is normal, is supple, without pain, no range of motions limitations, no meningismus, no nuchal rigidity. 11:15 Chest/axilla: Inspection: normal, Palpation: crepitus, is not appreciated, tenderness, that is mild, of the anterior aspect of left upper chest. 11:15 Cardiovascular: Rate: normal, Rhythm: regular, Pulses: Pulses are 2+ in right radial artery and left radial artery. Heart sounds: murmur, not appreciated, Edema: is not appreciated, JVD: is not appreciated. 11:15 Respiratory: the patient does not display signs of respiratory distress, Respirations: normal, no use of accessory muscles, no retractions, no splinting, no tachypnea, labored breathing, is not present, Breath sounds: are clear throughout, no decreased breath sounds, no stridor, no wheezing. 11:15 Abdomen/GI: Inspection: abdomen appears normal, Bowel sounds: active, all quadrants, Palpation: abdomen is soft and non-tender, in all quadrants, rebound tenderness, is not appreciated, voluntary guarding, is not appreciated, involuntary guarding, is not appreciated. 11:15 Back: pain, is absent, ROM is normal. 11:15 Skin: cellulitis, is not appreciated, no rash present. 11:15 Neuro: Orientation: to person, place \T\ time. Mentation: is normal, Cerebellar function: is grossly normal, Motor: moves all fours, strength is normal, Sensation: is normal. Vital Signs: 10:57 BP 170 / 103; Pulse 92; Resp 20; Temp 98.1; Pulse Ox 97% ; Weight 120.2 kg; Height 5 sv ft. 2 in. (157.48 cm); Pain 7/10; 11:51 BP 156 / 106; Pulse 85; Resp 16; Pulse Ox 98% on R/A; la1 13:31 BP 155 / 103; Pulse 78; Resp 16; Pulse Ox 98% on R/A; la1 13:56 BP 146 / 94; Pulse 79; Resp 16; Pulse Ox 98% on R/A; la1 10:57 Body Mass Index 48.47 (120.20 kg, 157.48 cm) sv MDM: 10:55 Patient medically screened. cp 11:30 Differential diagnosis: acute myocardial infarction, acute pericarditis, chest wall cp pain, costochondritis, myocarditis, pleurisy, pneumonia, pneumothorax, pulmonary embolus, stable angina, unstable angina. 12:30 The patient was given aspirin in the Emergency Department. cp 12:30 Data reviewed: vital signs, nurses notes, lab test result(s), EKG, radiologic studies, cp plain films, and as a result, I will admit patient. Test interpretation: by ED physician or midlevel provider: ECG, plain radiologic studies. Response to treatment: the patient's symptoms have markedly improved after treatment. 12:31 Physician consultation: Radhika Moncada MD was called at 12:32, was contacted at 12:32, cp regarding admission, to the telemetry unit. patient's condition. 02/21 11:08 Order name: Basic Metabolic Panel; Complete Time: 11:47 cp 02/21 11:08 Order name: CBC with Diff; Complete Time: 11:47 cp 02/21 11:08 Order name: LFT's; Complete Time: 11:47 cp 02/21 11:08 Order name: Magnesium; Complete Time: 11:47 cp 02/21 11:08 Order name: NT PRO-BNP; Complete Time: 11:47 cp 02/21 11:08 Order name: PT-INR; Complete Time: 11:47 cp 02/21 10:55 Order name: EKG; Complete Time: 10:56 sv 02/21 11:08 Order name: Troponin (emerg Dept Use Only); Complete Time: 11:47 cp 02/21 11:48 Interpretation: Reviewed. cp 02/21 11:08 Order name: XRAY Chest (1 view); Complete Time: 12:29 cp 02/21 10:55 Order name: EKG - Nurse/Tech; Complete Time: 10:59 sv 02/21 11:08 Order name: Cardiac monitoring; Complete Time: 11:20 cp 02/21 11:08 Order name: IV Saline Lock; Complete Time: 11:20 cp 02/21 11:08 Order name: Labs collected and sent; Complete Time: 11:20 cp 02/21 11:08 Order name: O2 Per Protocol; Complete Time: 11:20 cp 02/21 11:08 Order name: O2 Sat Monitoring; Complete Time: 11:20 cp EC:10 Rate is 93 beats/min. Rhythm is regular. MD interval is normal. QRS interval is normal. cp QT interval is normal. Interpreted by me. Reviewed by me. Administered Medications: 11:20 Drug: Metoprolol 25 mg Route: PO; la1 11:45 Follow up: Response: No adverse reaction la1 11:20 Drug: Lopressor 5 mg Route: IVP; Site: left antecubital; la1 11:45 Follow up: Response: No adverse reaction; Blood pressure is lowered la1 11:20 Drug: Aspirin Chewable Tablet 324 mg Route: PO; la1 11:46 Follow up: Response: No adverse reaction la1 12:06 Drug: Nitroglycerin 0.4 mg Route: Sublingual; la1 12:16 Follow up: Response: No adverse reaction; Pain is decreased la1 13:51 Drug: Lopressor 5 mg Route: IVP; Site: right forearm; la1 13:58 Follow up: Response: No adverse reaction; Blood pressure is lowered la1 Disposition: 02/22 06:45 Co-signature as Attending Physician, Flaco Andrews MD I agree with the assessment and lexi plan of care. Disposition: 02/21/18 12:41 Hospitalization ordered by Radhika Moncada for Observation. Preliminary diagnosis is Chest pain, unspecified. - Bed requested for Telemetry/MedSurg (observation). - Status is Observation. la1 - Condition is Stable. - Problem is new. - Symptoms have improved. UTI on Admission? No Signatures: Dispatcher [employer] EDRoshni Patel RN Flaco Greer MD MD cha Attema, Lee, RN RN la1 Flaco Brewster PA PA cp Botello, Elizabeth eb Corrections: (The following items were deleted from the chart) 02/21 13:47 12:41 Hospitalization Ordered by Radhika Moncada MD for Observation. Preliminary diagnosis eb is Chest pain, unspecified. Bed requested for Telemetry/MedSurg (observation). Status is Observation. Condition is Stable. Problem is new. Symptoms have improved. UTI on Admission? No. cp 14:08 13:47 02/21/2018 12:41 Hospitalization Ordered by Radhika Moncada MD for Observation. la1 Preliminary diagnosis is Chest pain, unspecified. Bed requested for Telemetry/MedSurg (observation). Status is Observation. Condition is Stable. Problem is new. Symptoms have improved. UTI on Admission? No. eb
--- NOTE | 2018-02-21 15:16 | EKG ---
Test Date: 2018-02-21 Test Time: 11:02:06 Broadcast Field Supervisor: SURENDRA MEASUREMENT RESULTS: Intervals: Rate: 93 RI: 132 QRSD: 96 QT: 368 QTc: 457 [place]: P: 3 RI: 132 QRS: -20 T: 12 INTERPRETIVE STATEMENTS: Normal sinus rhythm Normal ECG Compared to ECG 12/12/2017 12:18:15 No significant changes Electronically Signed On 02-21-18 15:16:21 CDT by Shravan Silveira
[2018-02-21] MEDS ORDERED: ONDANSETRON 4 MG/2 ML VIAL IV PRN (16:28)
[2018-02-21] MEDS ORDERED: ACETAMINOPHEN 500 MG TAB PO PRN (16:28)
[2018-02-21 19:47] VITALS: BMI 51.9
[2018-02-21 20:19] LABS: CKMB Creatine Kinase MB < 1.0 ng/mL (0.3-3.6); Creatine Phosphokinase 81 U/L (26-192)
[2018-02-21 20:20] LABS: Urine Appearance CLEAR; Urine Bilirubin NEGATIVE (NEG); Urine Blood NEGATIVE (NEG); Urine Color YELLOW; Urine Glucose TRACE (NEG); Urine Protein TRACE (NEG); Urine Specific Gravity 1.025 (1.005-1.030); Urine pH 6.5 (5.0-7.0)
[2018-02-21 20:55] LABS: Urine Microscopic Reflex ORDER UMIC
[2018-02-21 20:58] LABS: Urine Bacteria <20 /HPF (<20); Urine Culture Reflex Order NOT NEEDED; Urine Mucus 1+ /HPF (NONE SEEN); Urine RBC <5 /HPF (NONE SEEN)
[2018-02-21] MEDS ORDERED: POTASSIUM CL SA 10 MEQ TAB PO ONE (21:00)
--- NOTE | 2018-02-21 21:59 | P.HP ---
Certification for Inpatient Patient admitted to: Observation With expected LOS: <2 Midnights Practitioner: I am a practitioner with admitting privileges, knowledge of patient current condition, hospital course, and medical plan of care. Services: Services provided to patient in accordance with Admission requirements found in Title 42 Section 412.3 of the Code of Federal Regulations Patient History Date of Service: 02/21/18 Reason for admission: Chest pain History of Present Illness: Ms. Pandey is a 42-year-old woman with history of hypertension, obesity, hypothyroidism, who came to ER complaining of chest pain. Her pain started this morning, it was constant with periods of exacerbation, maximal intensity 7/10, pressure-like located substernal radiating to neck and left arm. The patient states that she did not take her metoprolol for the last week because she did not fill the prescription. She has had nausea but no vomiting. She denied any shortness of breath or dizziness associated with the pain. In ER she has received nitro sublingual, improving significantly her symptoms. Initial troponin I is negative, EKG shows no ST-T abnormalities. At time of my encounter she was chest pain-free. Allergies erythromycin base [Erythromycin Base] Allergy (Mild, Verified 03/23/12 17:11) Itching/Hives/Rash Erythromycin Allergy (Uncoded 10/12/14 13:10) Rash Home Medications: Levothyroxine [Synthroid] 100 mcg PO [id number] 02/21/18 Metoprolol Tartrate 1 tab PO DAILY 02/21/18 - Past Medical/Surgical History Has patient received pneumonia vaccine in the past: No -: HTN -: Hypothyroidism -: Obesity -: -: tubal ligation -: debridement of lower abdomen cellulitis - Family History Family History: Reviewed- Non-Contributory - Social History Smoking Status: Never smoker Alcohol use: No CD- Drugs: No Caffeine use: No Place of Residence: Home Review of Systems 10-point ROS is otherwise unremarkable Physical Examination - Vital Signs Temperature: 98 F Blood Pressure: 148/81 Pulse: 85 Respirations: 18 Pulse Ox (%): 98 - Physical Exam General: Alert, In no apparent distress HEENT: Atraumatic, PERRLA, Mucous membr. moist/pink, EOMI, Sclerae nonicteric Neck: Supple, 2+ carotid pulse no bruit, No LAD, Without JVD or thyroid abnormality Respiratory: Normal air movement, Expiratory wheezes (Scattered bilateral wheezing) Cardiovascular: Regular rate/rhythm, Normal S1 S2 Gastrointestinal: Normal bowel sounds, No tenderness Musculoskeletal: No tenderness Integumentary: No rashes Neurological: Normal speech, Normal strength at 5/5 x4 extr, Normal tone, Normal affect Lymphatics: No axilla or inguinal lymphadenopathy - Studies Laboratory Data (last 24 hrs) 02/21/18 11:10: PT 11.9, INR 1.01 02/21/18 11:10: WBC 8.1, Hgb 12.9, Hct 39.5, Plt Count 259 02/21/18 11:10: Sodium 140, Potassium 3.7, BUN 13, Creatinine 0.70, Glucose 103 , Magnesium 2.1, Total Bilirubin 0.3, AST 31, ALT 45, Alkaline Phosphatase 75 Assessment and Plan - Problems (Diagnosis) (1) Chest pain Current Visit: Yes Status: Acute Qualifiers: Chest pain type: precordial pain Qualified Code(s): R07.2 - Precordial pain (2) Hypertension Current Visit: Yes Status: Acute Qualifiers: Hypertension type: essential hypertension Qualified Code(s): I10 - Essential (primary) hypertension (3) Obesity Current Visit: Yes Status: Acute Qualifiers: Obesity type: unspecified obesity type Obesity classification: unspecified obesity classification Serious obesity comorbidity presence: unspecified whether serious comorbidity present Qualified Code(s): E66.9 - Obesity, unspecified (4) Hypothyroidism Current Visit: Yes Status: Acute Qualifiers: Hypothyroidism type: unspecified Qualified Code(s): E03.9 - Hypothyroidism , unspecified - Plan The patient will be admitted to the hospital due to typical chest pain. Will order serial cardiac enzymes and EKG. Consult firer automatic stoker for evaluation recommendation. - Advance Directives Does patient have a Living Will: No Does patient have a Durable POA for Healthcare: No - Code Status/Comfort Care Code Status Assessed: Yes Code Status: Full Code
[2018-02-21] MEDS: ASPIRIN 81 MG CHEWABLE TABLET PO SCH (22:00)
[2018-02-21] MEDS: ALBUTEROL 2.5 MG/3 ML NEB SOL NEB PRN (22:10)
[2018-02-21] MEDS: IPRATROPIUM BROM 0.5MG/2.5ML NEB PRN (22:10)
[2018-02-22 05:25] LABS: Absolute Lymphocytes (CBC) 1.6 K/uL (0.7-4.9); Absolute Monocytes 0.7 K/uL (0.1-1.3); Basophils % 0.9 % (0-1.3); Eosinophils % 3.7 % (0-4.4); Hematocrit 36.5 % (36.0-45.0); Lymphocytes % 20.9 % (15.3-44.8); MCH 27.8 pg (27.0-35.0); MCV 83.5 fL (80-100); Monocytes % 9.6 % (3.3-12.3); RBC Red Blood Cell Count 4.37 M/uL (3.86-4.86)
[2018-02-22 05:56] LABS: ALT/SGPT 41 U/L (12-78); AST/SGOT 39 U/L (15-37); Alkaline Phosphatase 66 U/L (45-117); BUN Blood Urea Nitrogen 15 mg/dL (7-18); Bicarbonate 27 mmol/L (21-32); Bilirubin Total 0.4 mg/dL (0.2-1.0); Glucose Level 139 mg/dL (74-106); Phosphorus 3.1 mg/dL (2.5-4.9); Potassium 4.3 mmol/L (3.5-5.1); Protein, Total 7.4 g/dL (6.4-8.2); Sodium Level 137 mmol/L (136-145); Troponin I < 0.02 ng/mL (0.0-0.045)
[2018-02-22 06:00] LABS: CKMB Creatine Kinase MB < 1.0 ng/mL (0.3-3.6); Creatine Phosphokinase 69 U/L (26-192)
[2018-02-22] MEDS: IPRATROPIUM BROM 0.5MG/2.5ML NEB PRN ×2 (06:00→10:35)
[2018-02-22] MEDS: ALBUTEROL 2.5 MG/3 ML NEB SOL NEB PRN ×2 (06:00→10:35)
[2018-02-22] MEDS ORDERED: REGADENOSON 0.4 MG/5 ML SYR IV ONE (08:41)
[2018-02-22] MEDS: ASPIRIN 81 MG CHEWABLE TABLET PO SCH (10:19)
--- NOTE | 2018-02-22 10:56 | RAD REPORT ---
EXAM DESCRIPTION: NM - Rest Stress Cardiac Imaging - 02/22/2018 10:49 am CLINICAL HISTORY: Chest pain COMPARISON: None. TECHNIQUE: The patient was administered 10.1 mCi of Tc 99m Sestamibi prior to resting SPECT imaging of the heart. The patient was then administered 30.8 mCi of Tc 99m Sestamibi following exercise or ph armacologic stress. Multiplanar SPECT images were reviewed. FINDINGS: The end diastolic volume is 117 ml, the end systolic volume is 59 ml, and the ejection fra ction is 50 %. No stress-induced ischemic changes are identified. A small moderate severity fixed defect is present anteroseptal wall near the apex. This does not clearly change between rest and stress imaging. This i s favored to be scarring but is potentially soft tissue attenuation artifact. Small fixed defect infe ro lateral wall near the apex also unchanged between rest and stress imaging. IMPRESSION: Small fixed defect inferolateral and anteroseptal that could be scarring, attenuation ar tifact or a combination. No stress-induced ischemic changes identifiable. End-diastolic volume was 117 mL with a 50% EF.
--- NOTE | 2018-02-22 12:21 | TREADPHA ---
DX: CHEST PAIN Date of Study: 02/22/2018 Ht: 5 1 Wt: 274 lb 12.8 oz Consulting Physician: LASHAY MEDICATIONS: TYLENOL, PROVENTIL, ASPIRIN HISTORY: 42 YEAR OLD FEMALE HERE FOR CHEST PAIN. HISTORY OF HYPERTENSION AND HYPOTHYROIDISM. PHYSICIAL EXAMINATION: RESTING B.P.: 152/89 RESTING H.R.: 82 RESTING EKG: NORMAL PROTOCOL: LEXISCAN EXERCISE TIME: 3:30 B.P. AT PEAK STRESS: 151/84 IMPRESSION: LEXISCAN STRESS TEST PERFORMED. CARDIOLITE INJECTED PER PROTOCOL. NO ARRHYTHMIAS NOTED. DENIES ANY CHEST PAIN. SEE NUCLEAR MEDICINE REPORT.
--- NOTE | 2018-02-22 12:29 | ECHO ---
HEIGHT: 5 ft 1 in WEIGHT: 274 lb 12.8 oz DATE OF STUDY: 02/22/[address]: Radhika Moncada MD 2-DIMENSIONAL: YES M.MODE: YES DOPPLER: YES COLOR FLOW: YES TDS: YES PORTABLE: NO DEFINITY: NO BUBBLE STUDY: NO DIAGNOSIS: CHEST PAIN CARDIAC HISTORY: CATHERIZATION: NO SURGERY: NO PROSTHETIC VALVE: NO PACEMAKER: NO MEASUREMENTS (cm) DIASTOLIC (NORMALS) SYSTOLIC (NORMALS) IVSd (0.6-1.2) LA Diam (1.9-4.0) LVEF 68% LVIDd (3.5-5.7) LVIDs 2.4 (2.0-3.5) %FS 37% LVPWd (0.6-1.2) Ao Diam (2.0-3.7) 2 DIMENSIONAL ASSESSMENT: RIGHT ATRIUM: NORMAL LEFT ATRIUM: NORMAL RIGHT VENTRICLE: NORMAL LEFT VENTRICLE: NORMAL TRICUSPID VALVE: NORMAL MITRAL VALVE: NORMAL PULMONIC VALVE: NORMAL AORTIC VALVE: NORMAL PERICARDIAL EFFUSION: NONE AORTIC ROOT: NORMAL LEFT VENTRICULAR WALL MOTION: NORMAL DOPPLER/COLOR FLOW: NORMAL COMMENTS: NORMAL 2D ECHOCARDIOGRAM WITH DOPPLER. NO WALL MOTION ABNORNMALITY. NO EFFUSION. TECHNOLOGIST: Niya GROSS
--- NOTE | 2018-02-22 13:12 | P.DS ---
Admission Date: 02/21/18 Discharge Date: 02/22/18 Primary Care Provider: Dr. Howard; Cardiology-Dr. Rogers Disposition: ROUTINE DISCHARGE Discharge Condition: GOOD Reason for Admission: Chest pain Consultations: Cardiology-Dr. Suarez Procedures: Echocardiogram: EF-68% LEFT VENTRICULAR WALL MOTION: NORMAL DOPPLER/COLOR FLOW: NORMAL COMMENTS: NORMAL 2D ECHOCARDIOGRAM WITH DOPPLER. NO WALL MOTION ABNORNMALITY. NO EFFUSION. Cardiac Stress test: COMPARISON: None. TECHNIQUE: The patient was administered 10.1 mCi of Tc 99m Sestamibi prior to resting SPECT imaging of the heart. The patient was then administered 30.8 mCi of Tc 99m Sestamibi following exercise or pharmacologic stress. Multiplanar SPECT images were reviewed. FINDINGS: The end diastolic volume is 117 ml, the end systolic volume is 59 ml , and the ejection fraction is 50 %. No stress-induced ischemic changes are identified. A small moderate severity fixed defect is present anteroseptal wall near the apex. This does not clearly change between rest and stress imaging. This is favored to be scarring but is potentially soft tissue attenuation artifact. Small fixed defect infero lateral wall near the apex also unchanged between rest and stress imaging. IMPRESSION: Small fixed defect inferolateral and anteroseptal that could be scarring, attenuation artifact or a combination. No stress-induced ischemic changes identifiable. End-diastolic volume was 117 mL with a 50% EF. Medical problem list: Chest pain, resolved status post cardiac stress test showing no stress-induced ischemia Hypertension, uncontrolled, poor compliance Hypothyroidism Obesity-BMI 51 Brief History of Present Illness: 42-year-old female presented emergency room with chest pain. Patient with history of hypertension and hypothyroidism. Patient seen in evaluated emergency room. Patient was admitted for further evaluation. Patient had ran out of blood pressure medication over the past week. Hospital Course: Patient presented with chest pain. Patient seen and evaluated by Cardiology. Echocardiogram and cardiac stress test was done. Echocardiogram unremarkable with normal ejection fraction. Cardiac stress test showed no stress-induced ischemia. No further intervention was required. At discharge patient will continue with aspirin 81 mg daily. Recommendation is for the patient follow up with cardiology in 1-2 weeks to follow up this hospitalization. Patient has hypertension. Blood pressures were on controlled due to poor compliance. Patient had ran out of medication over the past week. Compliance with medication was addressed in detail. At discharge she will continue with Toprol-XL 50 mg daily. Recommendation is to maintain blood pressures less 150/ 80. Further adjustment can be done by her PCP or cardiology. Patient has hypothyroidism. Patient will continue with medication levothyroxine 100 mcg daily. Patient with obesity, BMI 51. Lifestyle modification education will be provided. Patient may have underlying obstructive sleep apnea. Recommendation is for the patient to follow up with her PCP for sleep study to further assess. Vital Signs/Physical Exam: Temp Pulse Resp BP Pulse Ox 99.3 F 87 20 168/94 H 97 02/22/18 08:00 02/22/18 10:10 02/22/18 08:00 02/22/18 10:10 02/22/18 08:00 General: Alert, In no apparent distress, Oriented x3, Cooperative HEENT: Atraumatic, Mucous membr. moist/pink Neck: Supple Respiratory: Clear to auscultation bilaterally, Normal air movement Cardiovascular: Normal pulses, Regular rate/rhythm Gastrointestinal: Normal bowel sounds, Soft and benign, Non-distended, No tenderness, No masses, No rebound, No guarding Musculoskeletal: No erythema, No tenderness, No warmth Integumentary: No tenderness/swelling, No erythema, No warmth, No cyanosis Neurological: Normal speech, Normal strength at 5/5 x4 extr, Normal tone, Normal affect Laboratory Data at Discharge: WBC 7.7 K/uL (4.3-10.9) 02/22/18 04:43 Hgb 12.2 g/dL (12.0-15.0) 02/22/18 04:43 Hct 36.5 % (36.0-45.0) 02/22/18 04:43 Plt Count 219 K/uL (152-406) 02/22/18 04:43 PT 11.9 SECONDS (9.5-12.5) 02/21/18 11:10 INR 1.01 02/21/18 11:10 Sodium 137 mmol/L (136-145) 02/22/18 04:43 Potassium 4.3 mmol/L (3.5-5.1) 02/22/18 04:43 BUN 15 mg/dL (7-18) 02/22/18 04:43 Creatinine 0.90 mg/dL (0.55-1.3) 02/22/18 04:43 Glucose 139 mg/dL (74-106) H 02/22/18 04:43 Phosphorus Cancelled 02/22/18 05:00 Magnesium 2.1 mg/dL (1.8-2.4) 02/21/18 11:10 Total Bilirubin 0.4 mg/dL (0.2-1.0) 02/22/18 04:43 AST 39 U/L (15-37) H 02/22/18 04:43 ALT 41 U/L (12-78) 02/22/18 04:43 Alkaline Phosphatase 66 U/L (45-117) 02/22/18 04:43 Troponin I < 0.02 ng/mL (0.0-0.045) 02/22/18 04:43 Home Medications: Levothyroxine [Synthroid*] 100 mcg PO [id number] 02/21/18 Aspirin Chewable [Aspirin Chewable*] 81 mg PO DAILY #90 tab.chew 02/22/18 Metoprolol Tartrate 1 tab PO DAILY #30 tablet 02/22/18 New Medications: Aspirin Chewable [Aspirin Chewable*] 81 mg PO DAILY #90 tab.chew Metoprolol Tartrate 1 tab PO DAILY #30 tablet Patient Discharge Instructions: 1. Patient will need a follow up with her PCP in 1 week to follow up this hospitalization. 2. Patient presented with chest pain. Patient seen and evaluated by Cardiology. Echocardiogram and cardiac stress test was done. Echocardiogram unremarkable with normal ejection fraction. Cardiac stress test showed no stress-induced ischemia. No further intervention was required. At discharge patient will continue with aspirin 81 mg daily. Recommendation is for the patient follow up with cardiology in 1-2 weeks to follow up this hospitalization. 3. Patient has hypertension. Blood pressures were on controlled due to poor compliance. Patient had ran out of medication over the past week. Compliance with medication was addressed in detail. At discharge she will continue with Toprol-XL 50 mg daily. Recommendation is to maintain blood pressures less 150/80. Further adjustment can be done by her PCP or cardiology. 4. Patient has hypothyroidism. Patient will continue with medication levothyroxine 100 mcg daily. 5. Patient with obesity, BMI 51. Lifestyle modification education will be provided. 6. Patient may have underlying obstructive sleep apnea. Recommendation is for the patient to follow up with her PCP for sleep study to further assess. Diet: AHA Activity: Ad branden Time spent managing pt's care (in minutes): 55
[2018-02-22 13:34] VITALS: BP 165/92; TEMP 97.9
[2018-02-22 13:51] VITALS: O2SAT 99
--- NOTE | 2018-02-22 16:28 | CON ---
Date of Consultation: 02/22/2018 Reason For Consultation: Chest pain. History Of Present Illness: Ms. Pandey is a 42-year-old white woman, who has a history of obesity, h ypertension, and hypothyroidism, apparently has seen Dr. Rogers in the past and she has had normal e chos and normal stress test, but she still gets treated for what she calls angina. She came in with chest pain that lasted 2 to 3 hours, substernal, sharp, stabbing, going to the back. No nausea, vomi ting, diaphoresis, PND, orthopnea, pedal edema, palpitations, or syncope. Her EKG was negative. Clarissa st x-ray was negative. Her laboratory was negative. Allergies: ERYTHROMYCIN. Review of Systems: Negative. Social History: Negative. Family History: Negative. Physical Examination: VITAL SIGNS: She weighs 274 pounds. Blood pressure is 160/70. HEENT: Negative. Neck: Supple without any bruit, lymphadenopathy, JVD, or thyromegaly. Chest: Clear to auscultation and percussion. Cardiac: Revealed a regular rhythm and rate. No murmurs, gallops, or rubs. Abdomen: Benign. Extremities: Revealed no clubbing, cyanosis, or edema. Diagnostic Data: All normal. Impression And Plan: 1.Atypical chest pain, probably pleuritic or gastric. 2.Hypertension. 3.Morbid obesity. 4.Hypothyroidism. 5.Possible bronchitis. I agree with inhaler therapy. I think, we need to continue her metoprolol, probably add Hyzaar or No rvasc with the diuretic. An echocardiogram and a stress Cardiolite are pending today. We will see w hat those shows prior to making final decisions. MARK/JONO Voice ID: [id number] Report ID: [id number]
[2018-02-23] MEDS ORDERED: LEVOTHYROXINE SOD 0.1 MG TAB PO SCH (06:00)
[2018-02-23] MEDS ORDERED: METOPROLOL TAR 50 MG TAB PO SCH (09:00)
== END 2018-02-22 14:51 | disposition home or self-care (01) ==
LOC: ER 10:46 → ERHOLD 13:10 → 4TH 14:02
PROVIDERS: ADMIT Family Medicine; ATTEND Internal Medicine
DX: R07.9 Chest pain, unspecified (principal); E66.9 Obesity, unspecified; Z68.43 Body mass index [BMI] 50.0-59.9, adult; I10 Essential (primary) hypertension; E03.9 Hypothyroidism, unspecified; Z91.14 Patient's other noncompliance with medication regimen
CPT/HCPCS: 36415; 71045; 78452; 80048; 80053; 80076; 81003; 81015; 82550; 82553; 83735; 83880; 84100; 84484; 85025; 85610; 87086; 87088; 93005; 93017; 93306; 94640; 99285; A9500; G0378; J2785

== ENCOUNTER 2018-02-25 10:29 | Emergency (ER) | payer OTHER ==
--- OUTSIDE RECORDS SUMMARY | 2018-02-25 10:31 | XMS REPORT ---
[...] End Status Dosage System Date Date hydrochlorothiaz [facility] [id number] 12.5 mg-20 mg Inactive 1 tab(s) henna-lisinopril orally once a day Metoprolol [facility] [id number] 50 mg orally Active 1 tab(s) Succinate ER once a day hydrochlorothiaz [facility] [id number] 12.5 mg-10 mg Jun 21, Active 1 tab(s) henna-lisinopril orally once a 2018 day levothyroxine [facility] [id number] 100 mcg (0.1 Active 1 tab(s) mg) orally once a day benzonatate [facility] [id number] 200 mg orally 3 Active 1 cap(s) times a day Vital Signs Date/Time: Jun 21, 2017 Blood Pressure Diastolic 70 mm Hg Blood Pressure Systolic 110 mm Hg Weight 265 lbs BMI 48.46 Index Height 62 in Results No Known Results Summary Purpose eClinicalWorks Submission
--- OUTSIDE RECORDS SUMMARY | 2018-02-25 10:31 | XMS REPORT | Continuity of Care Document ---
:1975 Author Organization Interface Problems Problem Status Onset Classification Date Comments Source Date Reported Morbid obesity due 07/19/19 10/17/[address] [facility] to excess calories [address] [place] [address] Gastro-esophageal 07/01/19 09/29/[address] [facility] reflux disease [address] [place] [address] without esophagitis [address]- [id number] Active 06/16/[address] BARIATRIC FOLLOW Active 06/08/[address] [facility] UP [address] [place] [address] MORBID OBESITY Active 04/06/[address] Body mass index 10/17/[address] [facility] 45.0-49.9, adult [facility] Dietary counseling 10/17/[address] [facility] and surveillance [facility] Essential 09/29/[address] [facility] hypertension [facility] Hypothyroidism, 09/29/[address] [facility] unspecified [facility] Morbid obesity Active Diagnosis 07/21/2017 [facility] Encounter for Active Problem 07/21/2017 [facility] preprocedural Care cardiovascular examination Chest pain, Active Problem 07/21/2017 [facility] unspecified type Care Medications Medication Details Route Status Patient Ordering Order Source Instructions Provider Date Hydrochlorothiazide 1 tab, Active 12.5 MG / Lisinopril PO, 2017 [facility] 20 MG Oral Tablet Daily, 0 [facility] Refill(s) metoprolol extended 50 mg, Active release PO, 2017 [facility] Daily, 0 [facility] Refill(s) Thyroxine 100 Active microgram [address] [place] [address] , Daily, [facility] 0 Refill(s) hydrochlorothiazide-l 1 tab(s) orally Active 12.5 mg-10 mg [facility] 06/21/ Comp isinopril orally once a 2018 [facility] hydrochlorothiazide-l 1 tab(s) orally Active 12.5 mg-20 mg [facility] isinopril orally once a Heart day [...] Date Comments Source BMI Calculated 108.72 06/23/2017 [facility] Weight 261 06/23/2017 [facility] Height 154.94 cm 06/23/2017 [facility] BMI Calculated 108.72 06/23/2017 [facility] Weight 261 06/23/2017 [facility] Height 154.94 cm 06/23/2017 [facility] Weight 118.636 06/23/2017 [facility] Height 154.94 cm 06/23/2017 [facility] BMI Calculated 49.42 06/23/2017 [facility] Diastolic (mm Hg) 70 06/21/2017 [facility] Systolic (mm Hg) 110 06/21/2017 [facility] Weight 265 06/21/2017 [facility] Height 62 06/21/2017 [facility] Encounters Location Location Encounter Encounter Reason Attending ADM DC Status Source Details Type Number For Provider Date Date [facility] [id number] [facility] 04/11 04/12 [facility]o /2016 [facility] Outpatient [id number] Terence 06/08 06/09 [facility] /2017 [facility] Bedded [id number] Terence 06/23 06/23 [facility] Perfect[facility] /2017 [facility] Outpatient [id number] Terence 07/11 07/12 [facility] /2017 [facility] Procedures Procedure Code Date Perfomer Comments Source
[2018-02-25] MEDS ORDERED: IPRATROPIUM BROM 0.5MG/2.5ML ONE (11:14)
[2018-02-25] MEDS ORDERED: ALBUTEROL 2.5 MG/3 ML NEB SOL ONE (11:14)
--- NOTE | 2018-02-25 11:47 | RAD REPORT ---
EXAM DESCRIPTION: RAD - Chest Pa And Lat (2 Views) - 02/25/2018 11:40 am CLINICAL HISTORY: Cough and congestion COMPARISON: February 21 TECHNIQUE: PA and lateral views of the chest were obtained. FINDINGS: The lungs are underinflated. Interstitial markings are slightly increased over the compari son. No consolidation. No cardiomegaly or vascular engorgement. Trachea is midline. No pleural effu chiki or pneumothorax seen. No acute bony finding noted. No aortic abnormality. IMPRESSION: Minimal prominence of the interstitial markings compared to February 21. Correlation is needed with any interstitial pneumonia or minimal edema symptoms.
--- NOTE | 2018-02-25 12:32 | EDPHYS ---
Physician Documentation [facility] Name: Haydee Pandey Age: 42 yrs Sex: Female : 1975 Arrival Date: 02/25/2018 Time: 10:32 Bed 20 Private MD: Shiva Howard E ED Physician Griffin Cheung HPI: 02/25 10:57 This 42 yrs old Female presents to ER via Ambulatory with complaints of Cough.jmm 10:57 The patient or guardian reports cough. Onset: The symptoms/episode began/occurred jmm gradually, 1 week(s) ago. Associated signs and symptoms: Pertinent positives: rhinorrhea, sore throat. 10:57 This is a 42 year old female with a history of HTN that presents to the ED with cough, jmm congestion beginning approx 1 week ago. Patient admitted for chest pain on 02/21. Patient states cough has decreased in severity but states now she has sinus congestion and sore throat. . Historical: - Allergies: 10:35 Erythromycin; la1 - PMHx: 10:35 Hypertension; Hypothyroidism; la1 - Immunization history:: Adult Immunizations up to date. - Social history:: Smoking status: Patient/guardian denies using tobacco. - Ebola Screening: : No symptoms or risks identified at this time. ROS: 11:09 Constitutional: Negative for fever, chills, and weight loss. jmm 11:09 Neck: Negative for injury, pain, and swelling, Cardiovascular: Negative for chest pain, palpitations, and edema. 11:09 ENT: Positive for sinus congestion. 11:09 Respiratory: Positive for cough. 11:09 All other systems are negative. Exam: 11:09 Head/Face: atraumatic. jmm 11:09 Neck: Trachea midline, Supple Chest/axilla: Normal chest wall appearance and motion. Cardiovascular: Regular rate and rhythm. No edema appreciated 11:09 Constitutional: The patient appears in no acute distress, alert, awake. 11:09 ENT: Posterior pharynx: erythema, that is mild. 11:09 Respiratory: the patient does not display signs of respiratory distress, Respirations: normal, Breath sounds: are clear throughout. 11:09 Abdomen/GI: Inspection: abdomen appears normal, Bowel sounds: normal, Palpation: abdomen is soft and non-tender, in all quadrants. 11:09 Skin: Appearance: Color: normal in color. 11:09 Neuro: Orientation: is normal, Mentation: is normal, Memory: is normal. 11:09 Psych: Behavior/mood is pleasant, cooperative. Vital Signs: 10:37 BP 155 / 100; Pulse 88; Resp 20; Temp 97.3(TE); Pulse Ox 95% on R/A; Weight 122.47 kg; la1 11:00 BP 160 / 98; Pulse 78; Resp 22; Pulse Ox 95% on R/A; em 12:21 BP 151 / 99; Pulse 74; Resp 20; Pulse Ox 92% on R/A; em 12:43 BP 150 / 90; Pulse 68; Resp 18; Pulse Ox 96% on R/A; Pain 5/10; em MDM: 10:57 Patient medically screened. [facility] 12:30 Data reviewed: vital signs, nurses notes. Counseling: I had a detailed discussion with [facility] the patient and/or guardian regarding: the historical points, exam findings, and any diagnostic results supporting the discharge/admit diagnosis, lab results, radiology results, the need for outpatient follow up, to return to the emergency department if symptoms worsen or persist or if there are any questions or concerns that arise at home. ED course: Patient is alert and non toxic in the appearance in the ED. Patient will be prescribed oral antibiotics and advised to follow up with PCP tomorrow. Patient is otherwise given strict return precautions. Patient understood and agrees with the plan of care. . 02/25 11:06 Order name: Influenza Screen (a \T\ B); Complete Time: 12:26 [facility] 02/25 11:06 Order name: Chest Pa And Lat (2 Views) XRAY; Complete Time: 11:48 [facility] Administered Medications: 11:15 Drug: DuoNeb (3:1) (2.5 mg - 0.5 mg) 3 ml Route: Nebulizer; em 12:11 Follow up: Response: No adverse reaction; Marked relief of symptoms em Disposition: 14:43 Co-signature as Attending Physician, Griffin Cheung MD I agree with the assessment and kdr plan of care. Disposition: 02/25/18 12:32 Discharged to Home. Impression: Acute bronchitis. - Condition is Stable. - Discharge Instructions: Acute Bronchitis, Adult. - Prescriptions for Augmentin 875- 125 mg Oral Tablet - take 1 tablet by ORAL route every 12 hours for 10 days; 20 tablet. Prednisone 20 mg Oral Tablet - take 3 tablet by ORAL route once daily for 5 days; 15 tablet. Albuterol Sulfate 90 mcg/actuation - inhale 1-2 puff by INHALATION route every 4-6 hours; 1 Inhaler. promethazine- DM - take 5 milliliter by ORAL route every 4-6 hours; 120 milliliter. - Medication Reconciliation Form, Thank You Letter, Antibiotic Education, Prescription Opioid Use form. - Follow up: Shiva Howard MD; When: Tomorrow; Reason: Recheck today's complaints, Continuance of care, Re-evaluation by your physician. Signatures: Dispatcher [employer] EDMS Griffin Cheung MD MD kdr Mickail, Joel, PA PA Jakob Herzog, TRUCK RENTAL CLERK TRUCK RENTAL CLERK em Bhupinder Rosales RN RN la1 Corrections: (The following items were deleted from the chart) 12:46 12:32 02/25/2018 12:32 Discharged to Home. Impression: Acute bronchitis. Condition is em Stable. Forms are Medication Reconciliation Form, Thank You Letter, Antibiotic Education, Prescription Opioid Use. Follow up: Shiva Howard; When: Tomorrow; Reason: Recheck today's complaints, Continuance of care, Re-evaluation by your physician. melly
--- NOTE | 2018-02-25 12:32 | ER ---
Nurse's Notes [facility] Name: Haydee Pandey Age: 42 yrs Sex: Female : 1975 Arrival Date: 02/25/2018 Time: 10:32 Bed 20 Private MD: Shiva Howard E Diagnosis: Acute bronchitis Presentation: 02/25 10:35 Presenting complaint: Patient states: I am having sinus symptoms and a cough, I was la1 just here and they gave me breathing treatments but they didn't send me home with anything and I am not getting better. Transition of care: patient was not received from another setting of care. Onset of symptoms was February 25, 2018. Risk Assessment: Do you want to hurt yourself or someone else? Patient reports no desire to harm self or others. Initial Sepsis Screen: Does the patient meet any 2 criteria? No. Patient's initial sepsis screen is negative. Does the patient have a suspected source of infection? No. Patient's initial sepsis screen is negative. Care prior to arrival: None. 10:35 Method Of Arrival: Ambulatory la1 10:35 Acuity: ELA 3 la1 Historical: - Allergies: 10:35 Erythromycin; la1 - PMHx: 10:35 Hypertension; Hypothyroidism; la1 - Immunization history:: Adult Immunizations up to date. - Social history:: Smoking status: Patient/guardian denies using tobacco. - Ebola Screening: : No symptoms or risks identified at this time. Screenin:16 Abuse screen: Denies threats or abuse. Nutritional screening: No deficits noted. em Tuberculosis screening: No symptoms or risk factors identified. Fall Risk None identified. Assessment: 11:07 General: Appears uncomfortable, obese, well developed, well nourished. Pain: Complains em of pain in chest. Neuro: Level of Consciousness is awake, alert, obeys commands, Oriented to person, place, time, situation. Cardiovascular: Reports chest pain, Capillary refill < 3 seconds Patient's skin is warm and dry. Respiratory: Airway is patent Respiratory effort is even, Respiratory pattern is regular, symmetrical, Breath sounds with wheezes bilaterally. GI: Abdomen is round non-distended, obese, Patient currently denies nausea, vomiting. : No signs and/or symptoms were reported regarding the genitourinary system. Derm: Skin is intact, Skin is pink, warm \T\ dry. Musculoskeletal: Range of motion: intact in all extremities. 11:15 General: The previous assessment is accurate. Call light remains within reach. ss 11:30 Reassessment: Patient appears in no apparent distress at this time. transported to radiology dept. via wheelchair. 12:13 Reassessment: Patient appears in no apparent distress at this time. Patient and/or em family updated on plan of care and expected duration. Pain level reassessed. Patient is alert, oriented x 3, equal unlabored respirations, skin warm/dry/pink. Patient states feeling better. Vital Signs: 10:37 BP 155 / 100; Pulse 88; Resp 20; Temp 97.3(TE); Pulse Ox 95% on R/A; Weight 122.47 kg; la1 11:00 BP 160 / 98; Pulse 78; Resp 22; Pulse Ox 95% on R/A; em 12:21 BP 151 / 99; Pulse 74; Resp 20; Pulse Ox 92% on R/A; em 12:43 BP 150 / 90; Pulse 68; Resp 18; Pulse Ox 96% on R/A; Pain 5/10; em ED Course: 10:32 Patient arrived in ED. as 10:32 Shiva Howard MD is Private Physician. as 10:35 Ron Zavala PA is PHCP. jmm 10:35 Griffin Cheung MD is Attending Physician. jmm 10:36 Triage completed. la1 10:36 Arm band placed on left wrist. la1 10:48 Jakob Donato LVN is Primary Nurse. em 11:16 Patient has correct armband on for positive identification. Placed in gown. Bed in low em position. Call light in reach. 11:16 No provider procedures requiring assistance completed. em 11:30 Patient moved to radiology via wheelchair. tm4 11:35 X-ray completed. Patient tolerated procedure well. tm4 11:36 Chest Pa And Lat (2 Views) XRAY In Process Unspecified. EDMS 12:32 Shiva Howard MD is Referral Physician. jmm 12:44 Patient did not have IV access during this emergency room visit. em Administered Medications: 11:15 Drug: DuoNeb (3:1) (2.5 mg - 0.5 mg) 3 ml Route: Nebulizer; em 12:11 Follow up: Response: No adverse reaction; Marked relief of symptoms em Outcome: 12:32 Discharge ordered by MD. pickard 12:44 Discharged to home ambulatory, with family. em 12:44 Condition: good 12:44 Discharge instructions given to patient, Instructed on discharge instructions, follow up and referral plans. medication usage, Demonstrated understanding of instructions, follow-up care, medications, Prescriptions given X 3. 12:46 Patient left the ED. em Signatures: Dispatcher [employer] EDRon Graf PA PA jmm Marroquin, Tracy tm4 Jakob Donato, LABEL SEWER LABEL SEWER em Jackelyn Singleton Shelby, RN RN Bhupinder Rosales RN RN la1 Corrections: (The following items were deleted from the chart) 10:37 10:35 Acuity: ELA 4 la1 la1
[2018-02-25 12:58] VITALS: TEMP 97.3
[2018-02-25 13:01] VITALS: BP 150/90; O2SAT 96
== END 2018-02-25 12:46 | disposition home or self-care (01) ==
LOC: ER 10:29
DX: J20.9 Acute bronchitis, unspecified (principal); I10 Essential (primary) hypertension; Z88.3 Allergy status to other anti-infective agents
CPT/HCPCS: 71046; 87804; 94640; 99284

== ENCOUNTER 2019-06-02 09:52 | Emergency (ER) | payer OTHER ==
--- NOTE | 2019-06-02 10:21 | ER ---
Nurse's Notes [facility] Name: Haydee Pandey Age: 43 yrs Sex: Female : 1975 Arrival Date: 06/02/2019 Time: 09:54 Bed 5 Private MD: Diagnosis: Intervertebral disc disorders with radiculopathy, lumbosacral region;Intervertebral disc disorders with myelopathy, thoracic region Presentation: 06/02 10:11 Presenting complaint: Patient states: Mid back pain that radiates towards R flank area ss x 3-4 weeks. 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 Denies urinary s/s. Transition of care: patient was not received from another setting of care. Onset of symptoms was April 2019. Risk Assessment: Do you want to hurt yourself or someone else? Patient reports no desire to harm self or others. Initial Sepsis Screen: Does the patient meet any 2 criteria? No. Patient's initial sepsis screen is negative. Does the patient have a suspected source of infection? No. Patient's initial sepsis screen is negative. Care prior to arrival: None. 10:11 Acuity: ELA 4 ss 10:11 Method Of Arrival: Ambulatory ss Historical: - Allergies: 10:15 Erythromycin; ss - PMHx: 10:15 Hypertension; Hypothyroidism; ss - Immunization history:: Adult Immunizations up to date. - Coronavirus screen:: The patient has NOT traveled to [place], [place], or [place] in the past 14 days. Proceed with normal triage process as indicated. - Social history:: Smoking status: Patient denies any tobacco usage or history of. - Family history:: not pertinent. - Ebola Screening: : Patient denies exposure to infectious person Patient denies travel to an Ebola-affected area in the 21 days before illness onset. - Hospitalizations: : No recent hospitalization is reported. Screenin:15 Abuse screen: Denies threats or abuse. Denies injuries from another. Nutritional ph screening: On. Tuberculosis screening: No symptoms or risk factors identified. Fall Risk None identified. Assessment: 10:15 General: Appears in no apparent distress. comfortable, well groomed, Behavior is calm, ph cooperative, appropriate for age. Pain: Complains of pain in thoracic area Pain radiates to right leg and left arm and right arm and left leg. Neuro: Level of Consciousness is awake, alert, obeys commands, Oriented to person, place, time, situation. Cardiovascular: Capillary refill < 3 seconds Patient's skin is warm and dry. Respiratory: Airway is patent Respiratory effort is even, unlabored. Derm: Skin is intact, is healthy with good turgor, Skin is pink, warm \T\ dry. Musculoskeletal: Circulation, motion, and sensation intact. Range of motion: intact in all extremities. Vital Signs: 10:09 BP 185 / 112; Pulse 90; Resp 17; Temp 98.9(TE); Pulse Ox 99% on R/A; ss ED Course: 09:54 Patient arrived in ED. as 09:59 Jose Vidales MD is Attending Physician. rn 10:09 Arm band placed on right wrist. ss 10:13 Triage completed. ss 10:15 Patient has correct armband on for positive identification. Placed in gown. Bed in low ph position. Call light in reach. Side rails up X 1. Pulse ox on. NIBP on. Door closed. Noise minimized. Warm blanket given. 10:31 Eveline Emery, RN is Primary Nurse. ph 10:36 No provider procedures requiring assistance completed. Patient did not have IV access hb during this emergency room visit. Administered Medications: No medications were administered Outcome: 10:20 Discharge ordered by . rn 10:36 Discharged to home ambulatory, with significant other. hb 10:36 Condition: stable 10:36 Discharge instructions given to patient, Instructed on discharge instructions, follow up and referral plans. medication usage, Demonstrated understanding of instructions, follow-up care, medications, Prescriptions given X 2. 10:37 Patient left the ED. hb Signatures: Jackelyn Singleton as Jose Vidales MD MD rn Smirch, Shelby, RN RN Eveline Emery RN RN Chelsea Hennessy RN RN hb
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
[2019-06-02 10:51] VITALS: BP 185/112; TEMP 98.9; O2SAT 99
== END 2019-06-02 10:37 | disposition home or self-care (01) ==
LOC: ER 09:52
DX: M51.04 Intervertebral disc disorders with myelopathy, thoracic region (principal); M51.17 Intervertebral disc disorders with radiculopathy, lumbosacral region; Z88.3 Allergy status to other anti-infective agents
CPT/HCPCS: 99283

== ENCOUNTER 2019-10-09 13:11 | Emergency (ER) | payer OTHER ==
--- OUTSIDE RECORDS SUMMARY | 2019-10-09 13:22 | XMS REPORT | Continuity of Care Document ---
:1975 Author Organization [facility] Information [employer] Care Team Providers Name Role Phone [facility] [place] [employer] Information [employer] Unavailable Un available Problems Problem Status Onset Classification Date Comments Sourc e Date Reported Morbid (severe) 07/19/19 10/17/[address] [facility] obesity due to 18 [facility] excess calories Gastro-esophageal 07/01/19 09/29/2017 [facility] reflux disease 18 [facility] without esophagitis [id number] Active 06/16/19 Gama ial 18 [facility] BARIATRIC FOLLOW Active 06/08/[address] [facility] UP [address] [place] [address] MORBID OBESITY Active 04/06/20 [facility] morial 17 [facility] Body mass index 10/17/[address] [facility] (BMI) 45.0-49.9, Cit y adult Dietary counseling 10/17/[address] [facility] and surveillance Cit y Essential [facility]29[facility] hypertension Hypothyroidism, 09/29/[address] [facility] unspecified [facility] Morbid obesity Active Diagnosis 07/21/2017 [facility] Encounter for Active Problem 07/21/2017 [facility] preprocedural Care cardiovascular examination Essential Active Problem 07/21/2017 [facility] hypertension Care Chest pain, Active Problem 07/21/2017 [facility] art unspecified type Car e Medications Medication Details Route Status Patient Ordering Order Source Instructions Provider Date Hydrochlorothiazide 1 tab, Active 12.5 MG / Lisinopril PO, 2017 [facility] orial 20 MG Oral Tablet Daily, 0 [facility] Refill(s) metoprolol extended 50 mg, Active release PO, 2017 [facility] Daily, 0 [facility] Refill(s) Thyroxine 100 Active microgram 2018 [facility] , Daily, City 0 Refill(s) hydrochlorothiazide-l 1 tab(s) orally Active 12.5 mg-10 mg [facility] / Comp isinopril orally once a 2018 [facility] hydrochlorothiazide-l 1 tab(s) orally Active 12.5 mg-20 mg [facility] isinopril orally once a Heart day [...] Category Reaction Severity Reaction Status Date Comments S ource type Reported erythromycin Adverse Info Not Adverse Active Comp Reaction Available Reaction 8 [facility] Immunizations No Data Provided for This Section Results No Data Provided for This Section Pathology Reports No Data Provided for This Section Diagnostic Reports No Data Provided for This Section Consultation Notes No Data Provided for This Section Discharge Summaries No Data Provided for This Section History and Physicals No Data Provided for This Section Vital Signs Vital Sign Value Date Comments Source BMI Calculated 108.72 06/23/[address] [facility] C ity Weight 261 06/23/[address] [facility] Cit y Height 154.94 cm 06/23/2017 [facility] y BMI Calculated 108.72 06/23/2017 [facility] ity Weight 261 06/23/2017 [facility] y Height 154.94 cm 06/23/[address] [facility] Cit y Weight 118.636 06/23/[address] [facility] Cit y Height 154.94 cm 06/23/2017 [facility] y BMI Calculated 49.42 06/23/[address] [facility] C ity Diastolic (mm Hg) 70 06/21/2017 [facility] Systolic (mm Hg) 110 06/21/2017 [facility] Weight 265 06/21/2017 [facility] Height 62 06/21/2017 [facility] Encounters Location Location Encounter Encounter Reason Attending ADM [place] Stat Source Details Type Number For Provider Date Date Visit [facility] [id number] Terence 04/11 04/12 [facility] Outpatient [id number] Terence 06/08 06/09 [facility] Bedded [id number] Terence 06/23 06/23 [facility] Outpatient Perfecto Aleks subramanian [facility] Outpatient [id number] Terence 07/11 07/12 [facility] Outpatient [id number] Terence 06/17 [facility] Ambulatory [id number] Terence 06/17 06/17 Bariat[facility] Pre-Reg [facility] Procedures No Data Provided for This Section Assessment and Plan No Data Provided for This Section Plan of Care No Data Provided for This Section Social History Social History Date Source No data available for this 06/17/2019 [facility] section No data available for this 07/12/[address] [facility] Phillip ity section Family History No Data Provided for This Section Advance Directives No Data Provided for This Section Functional Status No Data Provided for This Section
[2019-10-09] MEDS ORDERED: ONDANSETRON 4 MG/2 ML VIAL ONE (15:01)
[2019-10-09] MEDS ORDERED: NA CHLORIDE 0.9% 1,000 ML ONE (15:01)
[2019-10-09] MEDS ORDERED: DICYCLOMINE HCL 10 MG CAP ONE (15:01)
[2019-10-09 15:12] LABS: Absolute Lymphocytes (CBC) 1.8 K/uL (0.7-4.9); Basophils % 0.5 % (0-1.3); Hematocrit 38.4 % (36.0-45.0); Lymphocytes % 24.7 % (15.3-44.8); MPV 8.7 fL (7.6-11.3)
[2019-10-09 15:24] LABS: Albumin 3.2 g/dL (3.4-5.0); Bilirubin Direct 0.1 mg/dL (0-0.2); Bilirubin Total 0.3 mg/dL (0.2-1.0); Potassium 3.6 mmol/L (3.5-5.1); Protein, Total 7.7 g/dL (6.4-8.2)
--- NOTE | 2019-10-09 15:31 | RAD REPORT ---
EXAM DESCRIPTION: CT - Abdomen Pelvis W Contrast - 10/09/2019 3:11 pm CLINICAL HISTORY: Abdominal pain COMPARISON: 2016 TECHNIQUE: Computed axial tomography of the abdomen pelvis was obtained. 100 cc Isovue-300 was admin istered intravenously. Oral contrast was not requested which limits evaluation of bowel. All CT scans are performed using dose optimization technique as appropriate and may include automated exposure control or mA/KV adjustment according to patient size. FINDINGS: Fatty infiltration liver is present. Spleen, pancreas, adrenal and kidneys appear unremarkable. There is no evidence of diverticulitis. Mild thickening of the wall of the proximal transverse colon/ hepatic flexure The appendix is normal caliber. Tubal ligation clips are present. A tiny umbilical hernia contains fat IMPRESSION: Mild thickening of the wall of the proximal transverse colon/ hepatic flexure may indica te a mild colitis
[2019-10-09 15:37] LABS: Urine Bacteria <20 /HPF (<20); Urine Culture Reflex Order REFLEXED; Urine Mucus 1+ /HPF (NONE SEEN); Urine RBC <5 /HPF (NONE SEEN)
[2019-10-09 15:37] LABS: Urine Blood NEGATIVE (NEG); Urine Glucose NEGATIVE (NEG); Urine Protein NEGATIVE (NEG); Urine Specific Gravity >1.030 (1.005-1.030)
--- NOTE | 2019-10-09 16:07 | EDPHYS ---
Physician Documentation [facility] Name: Haydee Pandey Age: 43 yrs Sex: Female : 1975 Arrival Date: 10/09/2019 Time: 13:13 Bed 7 Private MD: ED Physician Flaco Andrews HPI: 10/08 14:45 This 43 yrs old Female presents to ER via Ambulatory with complaints of cp Abdominal Cramping. 14:45 The patient presents with abdominal pain in the lower abdomen. cp 14:45 Onset: The symptoms/episode began/occurred yesterday. The symptoms do not radiate. cp Associated signs and symptoms: Pertinent positives: diarrhea, Pertinent negatives: nausea and vomiting, blood in stools, constipation, dysuria, fever. The symptoms are described as crampy. 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 - Social history:: Smoking status: Patient denies any tobacco usage or history of. ROS: 15:00 Constitutional: Negative for body aches, chills, fever, poor PO intake. cp 15:00 Eyes: Negative for injury, pain, redness, and discharge. cp 15:00 ENT: Negative for ear pain, sore throat, difficulty swallowing, difficulty handling secretions. 15:00 Cardiovascular: Negative for chest pain, palpitations. 15:00 Respiratory: Negative for cough, shortness of breath, wheezing. 15:00 Abdomen/GI: Positive for abdominal pain, diarrhea, Negative for vomiting, constipation, black/tarry stool, rectal bleeding. 15:00 Back: Negative for radiated pain. 15:00 : Negative for urinary symptoms. 15:00 All other systems are negative. Exam: 15:05 Constitutional: The patient appears in no acute distress, alert, awake, non-toxic, well cp developed, well nourished. 15:05 Head/Face: Normocephalic, atraumatic. cp 15:05 Eyes: Periorbital structures: appear normal, Conjunctiva: normal, no exudate, no injection, Sclera: no appreciated abnormality, Lids and lashes: appear normal, bilaterally. 15:05 ENT: External ear(s): are unremarkable, Nose: is normal, Mouth: Lips: moist, Oral mucosa: moist, Posterior pharynx: Airway: no evidence of obstruction, patent. 15:05 Chest/axilla: Inspection: normal, Palpation: is normal, no crepitus, no tenderness. 15:05 Cardiovascular: Rate: normal, Rhythm: regular. 15:05 Respiratory: the patient does not display signs of respiratory distress, Respirations: normal, no use of accessory muscles, no retractions, labored breathing, is not present, Breath sounds: are clear throughout, no decreased breath sounds. 15:05 Abdomen/GI: Inspection: abdomen appears normal, Bowel sounds: active, all quadrants, Palpation: soft, in all quadrants, moderate abdominal tenderness, in the right upper quadrant, left upper quadrant and right lower quadrant, rebound tenderness, is not appreciated, involuntary guarding, is not appreciated. 15:05 Back: pain, is absent. Vital Signs: 13:19 BP 152 / 100; Pulse 88; Resp 17; Temp 99.1(TE); Pulse Ox 99% on R/A; Weight 102.06 kg; ss Height 5 ft. 1 in. (154.94 cm); Pain 8/10; 16:57 BP 154 / 102; Pulse 73; Resp 16; Pulse Ox 98% ; Pain 0/10; jl7 13:19 Body Mass Index 42.51 (102.06 kg, 154.94 cm) ss MDM: 14:22 Patient medically screened. cp 15:00 Differential diagnosis: appendicitis, gastritis, non-specific abd pain, pancreatitis, cp Ureterolithiasis, urinary tract infection, diverticulitis, colitis. 16:05 Data reviewed: vital signs, nurses notes, lab test result(s), radiologic studies, CT cp scan. 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 Response to treatment: the patient's symptoms have markedly improved after treatment, VSS. Pain improved. Will discharge to home for continued monitoring. 10/08 14:40 Order name: Basic Metabolic Panel; Complete Time: 15:45 cp 10/08 15:45 Interpretation: Normal except: GLUC 120; GFR 82. cp 10/08 14:40 Order name: CBC with Diff; Complete Time: 15:45 cp 10/08 14:40 Order name: Hepatic Function; Complete Time: 15:45 cp 10/08 15:45 Interpretation: Normal except: ALB 3.2; GLOB 4.5; A/G 0.7. cp 10/08 14:40 Order name: Lipase; Complete Time: 15:45 cp 10/08 14:40 Order name: Urine Microscopic Only; Complete Time: 15:45 cp 10/08 15:00 Order name: Urine Dipstick--Ancillary (enter results); Complete Time: 15:45 ss 10/08 14:40 Order name: CT Abd/Pelvis - IV Contrast Only; Complete Time: 15:45 cp 10/08 15:00 Order name: Urine --Ancillary (enter results); Complete Time: 15:45 ss 10/08 15:38 Order name: Urine Culture EDNM 10/08 16:21 Order name: CREATININE WHOLE BLOOD EDNM 10/08 14:40 Order name: IV Saline Lock; Complete Time: 15:03 cp 10/08 14:40 Order name: Labs collected and sent; Complete Time: 15:03 cp 10/08 14:40 Order name: Urine Dipstick-Ancillary (obtain specimen); Complete Time: 14:45 cp 10/08 14:40 Order name: Urine Test (obtain specimen); Complete Time: 14:45 cp Administered Medications: 14:50 Drug: Bentyl 20 mg Route: PO; aa5 17:03 Follow up: Response: No adverse reaction jl7 14:50 Drug: Zofran (Ondansetron) 4 mg Route: IVP; Site: right antecubital; aa5 17:03 Follow up: Response: No adverse reaction jl7 14:50 Drug: NS 0.9% 1000 ml Route: IV; Rate: 1000 ml/hr; Site: right antecubital; aa5 16:45 Follow up: Response: No adverse reaction; IV Status: Completed infusion; IV Intake: jl7 1000ml 16:10 Drug: metroNIDAZOLE 500 mg Volume: 100 ml; Route: IVPB; Infused Over: 30 mins; Site: aa5 right antecubital; 16:40 Follow up: Response: No adverse reaction; IV Status: Completed infusion jl7 16:10 Drug: Cipro 500 mg Route: PO; aa5 17:02 Follow up: Response: No adverse reaction jl7 Disposition: 10/09 13:27 Co-signature as Attending Physician, Flaco Andrews MD I agree with the assessment and [facility] plan of care. Disposition: 10/09/19 16:07 Discharged to Home. Impression: Infectious gastroenteritis and colitis, unspecified. - Condition is Stable. - Discharge Instructions: Food Choices to Help Relieve Diarrhea, Adult, Diarrhea, Adult, Colitis. - Prescriptions for Bentyl 20 mg Oral Tablet - take 1 tablet by ORAL route every 6 hours As needed; 30 tablet. Zofran 4 mg Oral Tablet - take 1 tablet by ORAL route every 12 hours As needed; 20 tablet. Cipro 500 mg Oral Tablet - take 1 tablet by ORAL route every 12 hours for 10 days; 20 tablet. Metronidazole 500 mg Oral Tablet - take 1 tablet by ORAL route every 8 hours; 30 tablet. - Medication Reconciliation Form, Thank You Letter, Antibiotic Education, Prescription Opioid Use form. - Follow up: Shiva Hay MD; When: 2 - 3 days; Reason: Recheck today's complaints. Follow up: Ramon Reyes MD; When: 2 - 3 days; Reason: Recheck today's complaints. - Problem is new. - Symptoms have improved. Signatures: Dispatcher [employer] Flaco Rodriguez MD MD cha Calderon, Audri, RN RN aa5 Cata Kaur RN RN ss Flaco Brewster PA PA cp Omar Mayers, RN RN jl7 Corrections: (The following items were deleted from the chart) 10/08 17:03 16:07 10/09/2019 16:07 Discharged to Home. Impression: Infectious gastroenteritis and jl7 colitis, unspecified. Condition is Stable. Forms are Medication Reconciliation Form, Thank You Letter, Antibiotic Education, Prescription Opioid Use. Follow up: Ramon Reyes; When: 2 - 3 days; Reason: Recheck today's complaints. Problem is new. Symptoms have improved. cp
--- NOTE | 2019-10-09 16:07 | ER ---
Nurse's Notes [facility] Name: Haydee Pandey Age: 43 yrs Sex: Female : 1975 Arrival Date: 10/09/2019 Time: 13:13 Bed 7 Private MD: Diagnosis: Infectious gastroenteritis and colitis, unspecified Presentation: 10/08 13:19 Chief complaint: Patient states: Abd cramping and diarrhea that began yesterday. ss Coronavirus screen: Proceed with normal triage. Patient denies a cough. Patient denies shortness of breath or difficulty breathing. Patient denies measured and/or subjective temperature greater than 100.4F prior to today's visit. Patient denies travel on a cruise ship or to a country the [facility] currently lists as an affected area. Patient denies contact with known and/or suspected case of COVID-19. Ebola Screen: Patient denies exposure to infectious person. Patient denies travel to an Ebola-affected area in the 21 days before illness onset. Initial Sepsis Screen: Does the patient meet any 2 criteria? No. Patient's initial sepsis screen is negative. Does the patient have a suspected source of infection? No. Patient's initial sepsis screen is negative. Risk Assessment: Do you want to hurt yourself or someone else? Patient reports no desire to harm self or others. Onset of symptoms was October 08, 2019. 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 - Social history:: Smoking status: Patient denies any tobacco usage or history of. Screenin:00 Abuse screen: Denies threats or abuse. Denies injuries from another. Nutritional jl7 screening: No deficits noted. Tuberculosis screening: No symptoms or risk factors identified. Fall Risk IV access (20 points). Assessment: 14:30 General: Appears in no apparent distress. uncomfortable, Behavior is calm, cooperative, jl7 appropriate for age. Pain: Complains of pain in right lower quadrant and left lower quadrant Pain currently is 8 out of 10 on a pain scale. Quality of pain is described as crampy. Neuro: Level of Consciousness is awake, alert, obeys commands, Oriented to person, place, time, situation. Cardiovascular: Patient's skin is warm and dry. Respiratory: Airway is patent Respiratory effort is even, unlabored, Respiratory pattern is regular, symmetrical. GI: not auscultated Abd is soft and non tender Reports diarrhea. Derm: Skin is pink, warm \T\ dry. 15:00 Reassessment: Patient is alert, oriented x 3, equal unlabored respirations, skin aa5 warm/dry/pink. Pt taken to CT via wheelchair . 16:00 Reassessment: Patient appears in no apparent distress at this time. No changes from jl7 previously documented assessment. Patient and/or family updated on plan of care and expected duration. Pain level reassessed. Patient is alert, oriented x 3, equal unlabored respirations, skin warm/dry/pink. 16:10 Reassessment: Pt will be discharged once medications are done infusing. jl7 Vital Signs: 13:19 BP 152 / 100; Pulse 88; Resp 17; Temp 99.1(TE); Pulse Ox 99% on R/A; Weight 102.06 kg; ss Height 5 ft. 1 in. (154.94 cm); Pain 8/10; 16:57 BP 154 / 102; Pulse 73; Resp 16; Pulse Ox 98% ; Pain 0/10; jl7 13:19 Body Mass Index 42.51 (102.06 kg, 154.94 cm) ED Course: 13:13 Patient arrived in ED. as 13:21 Triage completed. ss 13:21 Arm band placed on left wrist. ss 14:20 Flaco Brewster PA is PHCP. cp 14:20 Flaco Andrews MD is Attending Physician. cp 14:45 Radiology exam delayed due to IV insertion attempt and/or patient not having vm2 appropriate IV at this time. 14:53 Initial lab(s) drawn, by me, sent to lab. Inserted saline lock: 20 gauge in right dh3 antecubital area, using aseptic technique. Blood collected. 15:00 Patient has correct armband on for positive identification. Bed in low position. Call jl7 light in reach. Side rails up X 1. Pulse ox on. NIBP on. 15:11 CT Abd/Pelvis - IV Contrast Only In Process Unspecified. EDMS 16:06 Shiva Hay MD is Referral Physician. cp 16:06 Referral Physician role handed off by Shiva Hay MD cp 16:06 Ramon Reyes MD is Referral Physician. cp 16:59 No provider procedures requiring assistance completed. IV discontinued, intact, jl7 bleeding controlled, No redness/swelling at site. Pressure dressing applied. Administered Medications: 14:50 Drug: Bentyl 20 mg Route: PO; aa5 17:03 Follow up: Response: No adverse reaction jl7 14:50 Drug: Zofran (Ondansetron) 4 mg Route: IVP; Site: right antecubital; aa5 17:03 Follow up: Response: No adverse reaction jl7 14:50 Drug: NS 0.9% 1000 ml Route: IV; Rate: 1000 ml/hr; Site: right antecubital; aa5 16:45 Follow up: Response: No adverse reaction; IV Status: Completed infusion; IV Intake: jl7 1000ml 16:10 Drug: metroNIDAZOLE 500 mg Volume: 100 ml; Route: IVPB; Infused Over: 30 mins; Site: aa5 right antecubital; 16:40 Follow up: Response: No adverse reaction; IV Status: Completed infusion jl7 16:10 Drug: Cipro 500 mg Route: PO; aa5 17:02 Follow up: Response: No adverse reaction jl7 Intake: 16:45 IV: 1000ml; Total: 1000ml. jl7 Outcome: 16:07 Discharge ordered by . cp 16:59 Discharged to home ambulatory, with family. jl7 16:59 Condition: stable 16:59 Discharge instructions given to patient, family, Instructed on discharge instructions, follow up and referral plans. medication usage, Demonstrated understanding of instructions, follow-up care, medications, Prescriptions given X 4. 17:03 Patient left the ED. jl7 Signatures: Dispatcher [employer] EDJackelyn Haas Audri, RN RN aa5 Cata Kaur RN RN ss Page, Corey, ARUN PA Omar Alaniz RN RN jl7 Renee Nye [facility] Farhana Mcfadden dh3 Corrections: (The following items were deleted from the chart) 18:13 14:44 Kassie Hodge RN is Primary Nurse. aa5 aa5
[2019-10-09] MEDS ORDERED: CIPROFLOXACIN HCL 500 MG TAB ONE (16:09)
[2019-10-09] MEDS ORDERED: METRONIDAZOLE 500mg IVPB 500 MG/100 ML BAG IV ONE (16:10)
[2019-10-09 17:20] VITALS: TEMP 99.1
[2019-10-09 17:25] VITALS: BP 154/102; O2SAT 98
== END 2019-10-09 17:03 | disposition home or self-care (01) ==
LOC: ER 13:11
DX: A09 Infectious gastroenteritis and colitis, unspecified (principal); I10 Essential (primary) hypertension; E03.9 Hypothyroidism, unspecified; Z88.3 Allergy status to other anti-infective agents
CPT/HCPCS: 96365; 96361; 87088; 85025; 87086; 80048; 36415; 81025; 82565; 80076; 83690; 74177; 96375; 99284; Q9967; J7030; J2405; 81003; 81015

== ENCOUNTER 2020-02-10 09:17 | Emergency (ER) | payer BC, OTHER ==
--- OUTSIDE RECORDS SUMMARY | 2020-02-10 09:28 | XMS REPORT | Continuity of Care Document ---
:1975 Author Organization [facility] [place] Information [employer] Care Team Providers Name Role Phone [facility] [employer] Information [employer] Unavailable Un available Problems Problem Status Onset Classification Date Comments Sourc e Date Reported Morbid (severe) 07/19/19 10/17/2017 [facility] obesity due to 18 [facility] excess calories Gastro-esophageal 07/01/19 09/29/2017 [facility] reflux disease 18 [facility] without esophagitis [id number] Active 06/16/19 Gama ial 18 [facility] BARIATRIC FOLLOW Active 06/08/19 [facility] UP [address] [place] [address] MORBID OBESITY Active 04/06/20 [facility] morial 17 [facility] Body mass index 10/17/2017 [facility] (BMI) 45.0-49.9, Cit y adult Dietary counseling 10/17/2017 [facility] and surveillance Cit y Essential 09/29/2017 Brendon al (primary) [facility] hypertension Hypothyroidism, 09/29/2017 [facility] unspecified [facility] Morbid obesity Active Diagnosis 07/21/2017 [facility] Encounter for Active Problem 07/21/2017 [facility] preprocedural Care cardiovascular examination Essential Active Problem 07/21/2017 [facility] hypertension Care Chest pain, Active Problem 07/21/2017 [facility] art unspecified type Car e Medications Medication Details Route Status Patient Ordering Order Source Instructions Provider Date Hydrochlorothiazide 1 tab, Active 12.5 MG / Lisinopril PO, 2017 [facility] orial 20 MG Oral Tablet Daily, 0 [facility] Refill(s) metoprolol extended 50 mg, Active release PO, 2017 [facility] Daily, 0 [facility] Refill(s) Thyroxine 100 Active microgram 2018 [facility] , Daily, City 0 Refill(s) hydrochlorothiazide-l 1 tab(s) orally Active 12.5 mg-10 mg [facility] / Comp isinopril orally once a [facility] hydrochlorothiazide-l 1 tab(s) orally Active 12.5 mg-20 mg [facility] isinopril orally once a [facility] [...] Date Comments Source BMI Calculated 108.72 06/23/2017 [facility] C ity Weight 261 06/23/2017 [facility] Cit y Height 154.94 cm 06/23/2017 [facility] y BMI Calculated 108.72 06/23/2017 [facility] ity Weight 261 06/23/2017 [facility] y Height 154.94 cm 06/23/2017 [facility] Cit y Weight 118.636 06/23/2017 [facility] Cit y Height 154.94 cm 06/23/2017 [facility] y BMI Calculated 49.42 06/23/2017 [facility] C ity Diastolic (mm Hg) 70 06/21/2017 [facility] Systolic (mm Hg) 110 06/21/2017 [facility] Weight 265 06/21/2017 [facility] Height 62 06/21/2017 [facility] Encounters Location Location Encounter Encounter Reason Attending ADM RI Stat Source Details Type Number For Provider Date Date [facility] [id number] Terence 04/11 04/12 [facility] [id number] Terence 06/08 06/09 [facility] Bedded [id number] Terence 06/23 06/23 [facility] Perfecto Aleks subramanian [facility] Outpatient [id number] Terence 07/11 07/12 [facility] [id number] Terence 06/17 [facility] Ambulatory [id number] Terence 06/17 06/17 [facility] Procedures No Data Provided for This Section Assessment and Plan No Data Provided for This Section Plan of Care No Data Provided for This Section Social History Social History Date Source No data available for this 06/17/2019 [facility] section No data available for this 07/12/2017 [facility] Phillip ity section Family History No Data Provided for This Section Advance Directives No Data Provided for This Section Functional Status No Data Provided for This Section
--- NOTE | 2020-02-10 11:00 | RAD REPORT ---
EXAM DESCRIPTION: RAD - Foot Left 3 View - 02/10/2020 10:46 am CLINICAL HISTORY: Left Foot pain FINDINGS: 8 millimeter bony density abuts the base of the first proximal phalanx. There is minimal c ortical irregularity. If this is the site of injury with point tenderness then this would represent a subacute fracture. If the patient is asymptomatic in this region then this would probably be the seq uela of old trauma. Large calcaneal spur is present No dislocation
--- NOTE | 2020-02-10 12:17 | ER ---
Nurse's Notes [facility] Name: Haydee Pandey Age: 44 yrs Sex: Female : 1975 Arrival Date: 02/10/2020 Time: 09:21 Bed 25 Private MD: Shiva Howard E Diagnosis: Pain in left foot Presentation: 02/09 09:50 Chief complaint: Patient states: left foot injury 2 weeks ago after having a full sv shampoo bottle hit the top of her foot. Coronavirus screen: Client denies travel out of the [place] in the last 14 days. At this time, the client does not indicate any symptoms associated with coronavirus-19. Ebola Screen: No symptoms or risks identified at this time. Risk Assessment: Do you want to hurt yourself or someone else? Patient reports no desire to harm self or others. Onset of symptoms was January 2020. 09:50 Method Of Arrival: Ambulatory sv 09:50 Acuity: ELA 4 sv 09:52 Initial Sepsis Screen: Does the patient meet any 2 criteria? No. Patient's initial sv sepsis screen is negative. Does the patient have a suspected source of infection? No. Patient's initial sepsis screen is negative. Historical: - Allergies: 09:52 Erythromycin; sv - PMHx: 09:52 Hypertension; Hypothyroidism; sv - Immunization history:: Flu vaccine is not up to date. - Social history:: Smoking status: Patient denies any tobacco usage or history of. Screenin:28 Abuse screen: Denies threats or abuse. Denies injuries from another. Nutritional ss screening: No deficits noted. Tuberculosis screening: Never had TB. Fall Risk None identified. Assessment: 10:28 General: Appears in no apparent distress. comfortable, Behavior is calm, cooperative. ss Pain: Complains of pain in dorsum of left foot Pain currently is 7 out of 10 on a pain scale. Quality of pain is described as aching, tender, Pain began 2 weeks ago Is continuous. Neuro: Level of Consciousness is awake, alert, obeys commands, Oriented to person, place, time, situation. Cardiovascular: Capillary refill < 3 seconds is brisk in bilateral fingers. Respiratory: Airway is patent Respiratory effort is even, unlabored, Respiratory pattern is regular, symmetrical. GI: Derm: Skin is pink, warm \T\ dry. normal. Musculoskeletal: Circulation, motion, and sensation intact. Range of motion: intact in all extremities, Swelling absent. 12:00 Reassessment: Patient appears in no apparent distress at this time. Patient and/or hb family updated on plan of care and expected duration. Pain level reassessed. Patient is alert, oriented x 3, equal unlabored respirations, skin warm/dry/pink. Vital Signs: 09:52 BP 148 / 94; Pulse 70; Resp 16; Temp 98.4; Pulse Ox 100% ; Weight 71.21 kg; Height 5 sv ft. 1 in. (154.94 cm); 09:52 Body Mass Index 29.66 (71.21 kg, 154.94 cm) sv ED Course: 09:21 Patient arrived in ED. mr 09:21 Shiva Howard MD is Private Physician. mr 09:51 Triage completed. sv 09:52 Arm band placed on. sv 10:09 Griffin Cheung MD is Attending Physician. kdr 10:28 Cata Kaur RN is Primary Nurse. ss 10:28 Patient has correct armband on for positive identification. Bed in low position. Call ss light in reach. 10:42 Foot Left 3 View XRAY In Process Unspecified. EDMS 12:35 No provider procedures requiring assistance completed. Patient did not have IV access hb during this emergency room visit. Administered Medications: No medications were administered Outcome: 12:17 Discharge ordered by . kdr 12:35 Discharged to home ambulatory, with crutches. hb 12:35 Condition: stable 12:35 Discharge instructions given to patient, Instructed on discharge instructions, follow up and referral plans. medication usage, crutch walking, Demonstrated understanding of instructions, follow-up care, medications, crutch walking, Prescriptions given X 1. 12:36 Patient left the ED. hb Signatures: Dispatcher [employer] EDMS Roshni Perrin RN RN Griffin Cheung MD MD kdr Rivera, Mary mr Cata Kaur RN RN Chelsea Hennessy RN RN hb Corrections: (The following items were deleted from the chart) 09:54 09:52 Pulse 70bpm; Resp 16bpm; Pulse Ox 100%; Temp 98.4F; 71.21 kg; Height 5 ft. 1 in.; sv BMI: 29.6; sv
--- NOTE | 2020-02-10 12:17 | EDPHYS ---
Physician Documentation [facility] Name: Haydee Pandey Age: 44 yrs Sex: Female : 1975 Arrival Date: 02/10/2020 Time: 09:21 Bed 25 Private MD: Shiva Howard E ED Physician Griffin Cheung HPI: 02/09 16:26 This 44 yrs old Female presents to ER via Ambulatory with complaints of Foot kdr Injury. 16:26 The patient presents with a contusion, a crush injury, Dropped full bottle of shampoo kdr on her foot top first and has been hurting since. The complaints affect the left foot. Context: The problem was sustained at home, resulted from a heavy object falling, Mechanism of Injury: the patient can fully bear weight, the patient is able to ambulate, with mild difficulty. Onset: The symptoms/episode began/occurred suddenly, this morning, 4 week(s) ago. Modifying factors: The symptoms are alleviated by elevation of extremity. Associated signs and symptoms: The patient has no apparent associated signs or symptoms. Severity of symptoms: At their worst the symptoms were mild, in the emergency department the symptoms are unchanged. The patient has not experienced similar symptoms in the past. The patient has not recently seen a physician. Historical: - Allergies: 09:52 Erythromycin; sv - PMHx: 09:52 Hypertension; Hypothyroidism; sv - Immunization history:: Flu vaccine is not up to date. - Social history:: Smoking status: Patient denies any tobacco usage or history of. ROS: 16:26 Constitutional: Negative for fever, chills, and weight loss, Eyes: Negative for injury, kdr pain, redness, and discharge, ENT: Negative for injury, pain, and discharge. 16:26 MS/extremity: Positive for contusion, pain, tenderness, of the left first toe and left second toe. Exam: 16:26 Constitutional: This is a well developed, well nourished patient who is awake, alert, kdr and in no acute distress. 16:26 Musculoskeletal/extremity: Extremities: grossly normal except: noted in the left first toe and left second toe: contusion, pain, swelling, tenderness. Vital Signs: 09:52 BP 148 / 94; Pulse 70; Resp 16; Temp 98.4; Pulse Ox 100% ; Weight 71.21 kg; Height 5 sv ft. 1 in. (154.94 cm); 09:52 Body Mass Index 29.66 (71.21 kg, 154.94 cm) sv MDM: 12:17 Patient medically screened. kdr 16:26 Data reviewed: vital signs, nurses notes, radiologic studies. Counseling: I had a kdr detailed discussion with the patient and/or guardian regarding: the historical points, exam findings, and any diagnostic results supporting the discharge/admit diagnosis, radiology results, the need for outpatient follow up. 02/09 09:54 Order name: Foot Left 3 View XRAY; Complete Time: 12:14 sv 02/09 12:16 Order name: Ortho shoe; Complete Time: 12:35 kdr 02/09 12:16 Order name: Crutches; Complete Time: 12:35 kdr Administered Medications: No medications were administered Disposition: 02/10/20 12:17 Discharged to Home. Impression: Pain in left foot. - Condition is Stable. - Discharge Instructions: Musculoskeletal Pain, Foot Pain. - Prescriptions for Tramadol 50 mg Oral Tablet - take 1 tablet by ORAL route every 8 hours as needed; 12 tablet. - Medication Reconciliation Form, Thank You Letter, Prescription Opioid Use, Work release form form. - Follow up: Private Physician; When: 2 - 3 days; Reason: If symptoms return, Further diagnostic work-up, Recheck today's complaints, Continuance of care, Re-evaluation by your physician. - Problem is an ongoing problem. - Symptoms are unchanged. Signatures: Dispatcher [employer] Roshni Hoff RN RN Griffin Cheung MD MD [facility] Chelsea Hennessy RN RN hb Corrections: (The following items were deleted from the chart) 12:36 12:17 02/10/2020 12:17 Discharged to Home. Impression: Pain in left foot. Condition is hb Stable. Forms are Medication Reconciliation Form, Thank You Letter, Antibiotic Education, Prescription Opioid Use. Follow up: Private Physician; When: 2 - 3 days; Reason: If symptoms return, Further diagnostic work-up, Recheck today's complaints, Continuance of care, Re-evaluation by your physician. Problem is an ongoing problem. Symptoms are unchanged. kdr
[2020-02-10 12:47] VITALS: BP 148/94; TEMP 98.4; O2SAT 100
== END 2020-02-10 12:36 | disposition home or self-care (01) ==
LOC: ER 09:17
DX: M79.672 Pain in left foot (principal); W20.8XXA Other cause of strike by thrown, projected or falling object, initial encounter; Y93.9 Activity, unspecified; Y92.9 Unspecified place or not applicable; Z88.3 Allergy status to other anti-infective agents
CPT/HCPCS: 99283

== ENCOUNTER 2021-05-18 17:26 | Emergency (ER) | payer BC ==
--- NOTE | 2021-05-18 18:30 | RAD REPORT ---
EXAM DESCRIPTION: RAD - Shoulder Right 2 View - 05/18/2021 6:21 pm CLINICAL HISTORY: PAIN COMPARISON: Shoulder Right 2 View dated 01/04/2015 FINDINGS: No fracture or dislocation is seen.
--- NOTE | 2021-05-18 18:31 | RAD REPORT ---
EXAM DESCRIPTION: RAD - Humerus Right - 05/18/2021 6:21 pm CLINICAL HISTORY: PAIN COMPARISON: No comparisons FINDINGS: No fracture or dislocation is seen.
--- NOTE | 2021-05-18 19:12 | ER ---
Nurse's Notes [facility] Name: Haydee Pandey Age: 45 yrs Sex: Female : 1975 Arrival Date: 05/18/2021 Time: 17:34 Bed 12 Private MD: Brigid Keyes K Diagnosis: Pain in right shoulder Presentation: 05/18 17:42 Chief complaint: Patient states: was taking the dog out and it was pulling hard on the iw leash, now has right shoulder and bicep pain , happened Monday night. Coronavirus screen: At this time, the client does not indicate any symptoms associated with coronavirus-19. Ebola Screen: Patient negative for fever greater than or equal to 101.5 degrees Fahrenheit, and additional compatible Ebola Virus Disease symptoms Patient denies exposure to infectious person. Patient denies travel to an Ebola-affected area in the 21 days before illness onset. No symptoms or risks identified at this time. Initial Sepsis Screen: Does the patient meet any 2 criteria? No. Patient's initial sepsis screen is negative. Does the patient have a suspected source of infection? No. Patient's initial sepsis screen is negative. Risk Assessment: Do you want to hurt yourself or someone else? Patient reports no desire to harm self or others. Onset of symptoms was May 14, 2021. 17:42 Method Of Arrival: Ambulatory iw 17:42 Acuity: ELA 4 iw Historical: - Allergies: 17:43 Erythromycin; iw - Home Meds: 17:43 levothyroxine 112 mcg oral cap once daily [Active]; metformin 850 mg Oral tab 1 tab 2 iw times per day [Active]; metoprolol succinate 50 mg oral Tb24 1 tab once daily [Active]; aspirin 81 mg Oral TbEC 1 tab once daily [Active]; - PMHx: 17:43 Hypertension; Hypothyroidism; iw - PSHx: 17:43 section; iw - Immunization history:: Client reports receiving the Darryl \T\ Darryl single-dose vaccine. - Social history:: Smoking status: Patient denies any tobacco usage or history of. Screenin:49 Abuse screen: Denies threats or abuse. Denies injuries from another. Nutritional ab2 screening: No deficits noted. Tuberculosis screening: No symptoms or risk factors identified. Fall Risk None identified. Assessment: 17:47 General: Appears in no apparent distress. comfortable, Behavior is calm, cooperative, ab2 appropriate for age. Pain: Complains of pain in anterior aspect of right shoulder and right bicep. Neuro: Level of Consciousness is awake, alert, obeys commands, Oriented to person, place, time, situation, Appropriate for age General Assembler are equal bilaterally Moves all extremities. Gait is steady, Speech is normal, Facial symmetry appears normal. Cardiovascular: Denies chest pain, shortness of breath, Heart tones S1 S2 present Patient's skin is warm and dry. Respiratory: No deficits noted. Airway is patent Breath sounds are clear bilaterally. GI: No deficits noted. No signs and/or symptoms were reported involving the gastrointestinal system. Abdomen is obese. : No deficits noted. No signs and/or symptoms were reported regarding the genitourinary system. EENT: No deficits noted. No signs and/or symptoms were reported regarding the EENT system. Derm: No deficits noted. No signs and/or symptoms reported regarding the dermatologic system. Musculoskeletal: Reports pain in anterior aspect of right shoulder and right bicep. Vital Signs: 17:42 BP 158 / 91; Pulse 70; Resp 16; Temp 98.4; Pulse Ox 100% on R/A; Weight 115.67 kg; iw Height 5 ft. 1 in. (154.94 cm); Pain 8/10; 19:15 BP 147 / 89; Pulse 74; Resp 16; Pulse Ox 98% on R/A; ab2 17:42 Body Mass Index 48.18 (115.67 kg, 154.94 cm) iw ED Course: 17:34 Patient arrived in ED. am2 17:34 Brigid Keyes MD is Private Physician. am2 17:43 Triage completed. iw 17:44 Arm band placed on. iw 17:47 Rosales Child is Primary Nurse. ab2 17:48 Gerri Nelson FNP-C is [facility]. kb 17:48 Gregorio Hyatt MD is Attending Physician. kb 17:49 Patient has correct armband on for positive identification. Bed in low position. Side ab2 rails up X2. Adult w/ patient. 17:49 No provider procedures requiring assistance completed. ab2 18:21 Shoulder Right (2 View) XRAY In Process Unspecified. EDMS 18:21 Humerus Right XRAY In Process Unspecified. EDMS 19:15 Patient did not have IV access during this emergency room visit. ab2 Administered Medications: No medications were administered Outcome: 19:11 Discharge ordered by . ella 19:15 Discharged to home ambulatory. ab2 19:15 Condition: good 19:15 Discharge instructions given to patient, Instructed on discharge instructions, follow up and referral plans. Demonstrated understanding of instructions, follow-up care, Prescriptions given X 2. 19:15 Patient left the ED. ab2 Signatures: Dispatcher [employer] [facility] Gerri Nelson, YVONNE-C DEMOLITION WORKER-Stacy Mcqueen, RN RN Lakeisha Daly Alexis ab2 Corrections: (The following items were deleted from the chart) 17:44 17:43 Home Meds: metoprolol tartrate 50 mg Oral tab 1 tab daily; [facility]
--- NOTE | 2021-05-18 19:12 | EDPHYS ---
Physician Documentation [facility] Name: Haydee Pandey Age: 45 yrs Sex: Female : 1975 Arrival Date: 05/18/2021 Time: 17:34 Bed 12 Private MD: Brigid Keyes K ED Physician Gregorio Hyatt HPI: 05/18 19:19 This 45 yrs old Female presents to ER via Ambulatory with complaints of Shoulder Pain - kb right. 19:19 The patient or guardian complains of decreased range of motion, pain, tenderness. right kb shoulder. Context: The problem was sustained outdoors, resulted from dog pulling on leash, The patient experiences decreased range of motion, The patient reports no obvious deformity. Onset: The symptoms/episode began/occurred 5 day(s) ago. Modifying factors: the symptoms are alleviated by nothing. The symptoms are aggravated by movement. Associated signs and symptoms: The patient has no apparent associated signs or symptoms. Severity of symptoms: At their worst the symptoms were moderate, in the emergency department the symptoms are unchanged. Treatment prior to arrival includes: no previous treatment. The patient has not experienced similar symptoms in the past. The patient has not recently seen a physician. Historical: - Allergies: 17:43 Erythromycin; iw - Home Meds: 17:43 levothyroxine 112 mcg oral cap once daily [Active]; metformin 850 mg Oral tab 1 tab 2 iw times per day [Active]; metoprolol succinate 50 mg oral Tb24 1 tab once daily [Active]; aspirin 81 mg Oral TbEC 1 tab once daily [Active]; - PMHx: 17:43 Hypertension; Hypothyroidism; iw - PSHx: 17:43 section; iw - Immunization history:: Client reports receiving the Darryl \T\ Darryl single-dose vaccine. - Social history:: Smoking status: Patient denies any tobacco usage or history of. ROS: 19:18 Constitutional: Negative for fever, chills, and weight loss. kb 19:18 MS/extremity: Positive for decreased range of motion, pain, tenderness, of the anterior aspect of right shoulder and right upper arm. 19:18 All other systems are negative. Exam: 19:18 Constitutional: This is a well developed, well nourished patient who is awake, alert, kb and in no acute distress. Head/Face: Normocephalic, atraumatic. ENT: Moist Mucous membranes Respiratory: Respirations even and unlabored. No increased work of breathing. Talking in full sentences Skin: Warm, dry with normal turgor. Normal color. Neuro: Awake and alert, GCS 15, oriented to person, place, time, and situation. Moves all extremities. Normal gait. Psych: Awake, alert, with orientation to person, place and time. Behavior, mood, and affect are within normal limits. 19:18 Musculoskeletal/extremity: Extremities: grossly normal except: noted in the right bicep and anterior aspect of right shoulder: pain, tenderness, ROM: limited active range of motion due to pain, in the anterior aspect of right shoulder and right bicep, Circulation is intact in all extremities. Sensation intact. Vital Signs: 17:42 BP 158 / 91; Pulse 70; Resp 16; Temp 98.4; Pulse Ox 100% on R/A; Weight 115.67 kg; iw Height 5 ft. 1 in. (154.94 cm); Pain 8/10; 19:15 BP 147 / 89; Pulse 74; Resp 16; Pulse Ox 98% on R/A; ab2 17:42 Body Mass Index 48.18 (115.67 kg, 154.94 cm) iw MDM: 17:48 Patient medically screened. kb 19:15 Data reviewed: vital signs, nurses notes. Data interpreted: Pulse oximetry: on room air kb is 100 %. Interpretation: normal. Counseling: I had a detailed discussion with the patient and/or guardian regarding: the historical points, exam findings, and any diagnostic results supporting the discharge/admit diagnosis, radiology results, the need for outpatient follow up, a orthopedic surgeon, to return to the emergency department if symptoms worsen or persist or if there are any questions or concerns that arise at home. 05/18 17:56 Order name: Shoulder Right (2 View) XRAY; Complete Time: 18:37 kb 05/18 17:56 Order name: Humerus Right XRAY; Complete Time: 18:37 kb Administered Medications: No medications were administered Disposition: 05/19 04:40 Co-signature as Attending Physician, Gregorio Hyatt MD I agree with the assessment and sp3 plan of care. Disposition Summary: 05/18/21 19:11 Discharge Ordered Location: Home kb Condition: Stable kb Diagnosis - Pain in right shoulder kb Followup: kb - With: Emergency Department - When: As needed - Reason: Worsening of condition Followup: kb - With: Private Physician - When: 2 - 3 days - Reason: Recheck today's complaints, Continuance of care, Re-evaluation by your physician Discharge Instructions: - Discharge Summary Sheet kb - Shoulder Pain, [id number] kb Forms: - Medication Reconciliation Form kb - Thank You Letter kb - Antibiotic Education kb - Prescription Opioid Use kb Prescriptions: - Cyclobenzaprine 10 mg Oral Tablet - take 1 tablet by ORAL route every 8 hours As needed; 21 tablet; Refills: 0, kb Product Selection Permitted - Diclofenac Sodium 75 mg Oral tablet,delayed release (DR/EC) - take 1 tablet by ORAL route 2 times per day As needed; 30 tablet; Refills: 0, kb Product Selection Permitted Signatures: Dispatcher [employer] EDGerri Roth, YVONNE-C YVONNE-Stacy Mcqueen, RN RN iw Gregorio Hyatt MD MD sp3 Corrections: (The following items were deleted from the chart) 05/18 17:44 17:43 Home Meds: metoprolol tartrate 50 mg Oral tab 1 tab daily; [facility]
[2021-05-18 20:16] VITALS: TEMP 98.4
[2021-05-18 20:17] VITALS: BP 147/89; O2SAT 98
== END 2021-05-18 19:15 | disposition home or self-care (01) ==
LOC: ER 17:26
DX: M25.511 Pain in right shoulder (principal); E03.9 Hypothyroidism, unspecified; I10 Essential (primary) hypertension; Z79.82 Long term (current) use of aspirin; Z88.3 Allergy status to other anti-infective agents
CPT/HCPCS: 99283

== ENCOUNTER 2021-12-12 17:54 | Emergency (ER) | payer BC, OTHER ==
--- OUTSIDE RECORDS SUMMARY | 2021-12-12 17:58 | XMS REPORT | Continuity of Care Document ---
:[address] [facility] t Address [address] [place] [address] [address] [place] [id number] Care Team Providers Name Role Phone Unavailable Unavailable Unavailable Problems This patient has no known problems. Allergies, Adverse Reactions, Alerts This patient has no known allergies or adverse reactions. Medications This patient has no known medications. Procedures This patient has no known procedures. Results Test Description Test Time Test Comments Results Result Comments Source HEMOGLOBIN A1c 2021-11-27 03:57:28 Test Item Value Reference Range Interpretation Comme nts HEMOGLOBIN A1c (test code = 07583) 6.1 % 4.2-5.6 H COMPREHENSIVE METABOLIC [id number] 03:45:59 Test Item Value Reference Range Interpretation Comments GLUCOSE (test code = 89 MG/DL 70-99 2216) BUN (test code = 19 MG/DL 6-20 2207) CREATININE (test 0.89 MG/DL 0.60-1.30 code = 2214) eGFR (2020 CKD-EPI) 80 ML/MIN/1.73 >60 (test code = 38572) CALC BUN/CREAT (test 21 RATIO 6-28 code = 2235) SODIUM (test code = 145 MEQ/L 559-892 9133) POTASSIUM (test code 4.5 MEQ/L 3.5-5.4 = 2228) CHLORIDE (test code 104 MEQ/L 95-107 = 2215) CARBON DIOXIDE (test 30 MEQ/L 19-31 code = 2206) CALCIUM (test code = 9.7 MG/DL 8.5-10.5 2208) PROTEIN, TOTAL (test 7.6 G/DL 6.1-8.3 code = 2229) ALBUMIN (test code = 4.4 G/DL 3.5-5.2 2200) CALC GLOBULIN (test 3.2 G/DL 1.9-3.7 code = 2240) CALC A/G RATIO (test 1.4 RATIO 1.0-2.6 code = 2234) BILIRUBIN, TOTAL 0.2 MG/DL See_Comment [Automated message] (test code = 2207) The syste m which generated this result transmit maurisio reference range : <=1.2. The refe rence range was not u sed to interpret th is result as normal/abnormal . ALKALINE PHOSPHATASE 58 U/L 40-123 (test code = 2203) AST (test code = 23 U/L 9-40 2217) ALT (test code = 18 U/L 5-40 2218) LIPID [id number] 03:45:59 Test Item Value Reference Range Interpretation Comments CHOLESTEROL (test 173 MG/DL <200 code = 2210) TRIGLYCERIDES (test 110 MG/DL <150 code = 2232) HDL CHOLESTEROL (test 50 MG/DL >39 code = 2220) CALC LDL CHOL (test 102 MG/DL <100 H NOTE: C ALCULATED LDL code = 2237) IS BASED ON TATO-GEORGE METHOD WHICHINCLUDES ADJUSTABLE TRIGLYCERIDE:VL DL CHOLESTEROL RAT IO.THIS FACTOR VARIES B Y MEASURED TRIGLY CERIDE AND NON-HDLCHOL ESTEROL CONCENTRATIONS WITH INCREASED CALCU LATED LDL SEENIN HIGH ER TRIGLYCERIDE OR LOWER NON-HDL SPECIME NS. FOR MOREINFORMATION , SEE CLIENT ANNOUNCE MENT AT [email or web address] RISK RATIO LDL/HDL 2.04 RATIO <3.22 UNLESS O THERWISE (test code = 2238) INDICATED , ALL TESTING PERFORMED [facility], [facility]. [address] [place] [id number] [place] [address] SIRI DIRECTOR: SEA HOOD M.D. CLIA NUMBER [id number] CAP ACCREDITATION N O. [id number]
--- NOTE | 2021-12-12 19:10 | RAD REPORT ---
EXAM DESCRIPTION: US - Extremity Venous Uni Ltd - 12/12/2021 7:01 pm CLINICAL HISTORY: PAIN COMPARISON: None. TECHNIQUE: Real-time sonographic evaluation of the left lower extremity deep venous system was perfo rmed. FINDINGS: Normal compressibility, flow augmentation, phasic flow and spontaneous flow are identified in the left lower extremity common femoral, superficial femoral, popliteal and posterior tibial vein s. No intraluminal filling defects seen. IMPRESSION: No DVT in the left lower extremity.
--- NOTE | 2021-12-12 19:14 | RAD REPORT ---
EXAM DESCRIPTION: RAD - Knee Left 3 View - 12/12/2021 6:56 pm CLINICAL HISTORY: PAIN COMPARISON: No comparisons FINDINGS: No fracture, dislocation or periosteal reaction.No joint effusion seen. No joint space nora rowing. Soft tissues anterior to the tibia and patella tendon are mildly edematous. No air or foreign body seen. IMPRESSION: No acute left knee bone or joint finding. Clinical concerns for internal derangement or occult bony injury could be further assessed with MR im aging.
--- NOTE | 2021-12-12 20:23 | ER ---
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 Pt states "It feel like a ball and like it wants to give out on me". Coronavirus screen: At this time, the client does not indicate any symptoms associated with coronavirus-19. Ebola Screen: No symptoms or risks identified at this time. Initial Sepsis Screen: Does the patient meet any 2 criteria? No. Patient's initial sepsis screen is negative. Does the patient have a suspected source of infection? No. Patient's initial sepsis screen is negative. Risk Assessment: Do you want to hurt yourself or someone else? Patient reports no desire to harm self or others. Onset of symptoms was November 2021. 18:15 Method Of Arrival: Ambulatory aa5 18:15 Acuity: ELA 4 aa5 Triage Assessment: 20:00 General: Appears in no apparent distress. uncomfortable, Behavior is cooperative, vc1 appropriate for age. Pain: Complains of pain in left knee Pain does not radiate. 20:00 Neuro: No deficits noted. Cardiovascular: Reports None Capillary refill < 3 seconds vc1 Patient's skin is warm and dry. Respiratory: No deficits noted. GI: No deficits noted. : No deficits noted. Derm: No signs and/or symptoms reported regarding the dermatologic system. Musculoskeletal: Reports pain in left knee. Historical: - Allergies: 18:16 Erythromycin; aa5 18:16 Morphine (Upset stomach); aa5 - PMHx: 18:16 Hypertension; Hypothyroidism; aa5 - PSHx: 18:16 section; aa5 - Immunization history:: Adult Immunizations unknown. - Social history:: Smoking status: Patient denies any tobacco usage or history of. Screenin:38 Abuse screen: Denies threats or abuse. Nutritional screening: No deficits noted. vc1 Tuberculosis screening: No symptoms or risk factors identified. Fall Risk None identified. Vital Signs: 18:15 BP 154 / 86; Pulse 90; Resp 16 S; Temp 97.9(TE); Pulse Ox 100% on R/A; Weight 102.97 kg aa5 (R); Height 5 ft. 1 in. (154.94 cm) (R); 18:15 Body Mass Index 42.89 (102.97 kg, 154.94 cm) aa5 ED Course: 17:56 Patient arrived in ED. am2 17:57 Gerri Nelson FNP-C is PHCP. kb 17:57 Roshni Estevez MD is Attending Physician. kb 18:15 Arm band placed on. aa5 18:16 Triage completed. aa5 18:58 Knee Left 3 View XRAY In Process Unspecified. EDMS 19:04 US Extremity Venous Unilateral Ltd In Process Unspecified. EDMS 20:40 No provider procedures requiring assistance completed. Patient did not have IV access vc1 during this emergency room visit. Administered Medications: No medications were administered Medication: 20:40 VIS not applicable for this client. vc1 Outcome: 20:23 Discharge ordered by . kb 20:40 Discharged to home ambulatory, with significant other. vc1 20:40 Condition: good 20:40 Discharge instructions given to patient, Instructed on discharge instructions, follow up and referral plans. medication usage, Demonstrated understanding of instructions, follow-up care, medications, Prescriptions given X 1. 20:41 Patient left the ED. vc1 Signatures: Dispatcher [employer] EDMA Gerri Nelson FNP-C FNP-Ckb Calderon, Audri RN RN aa5 Lakeisha Kelsey am Ernestine Judd RN RN vc1
--- NOTE | 2021-12-12 20:23 | EDPHYS ---
Physician Documentation [facility] Name: Haydee Pandey Age: 46 yrs Sex: Female : 1975 Arrival Date: 12/12/2021 Time: 17:56 Bed 12 Private MD: ED Physician Roshni Estevez HPI: 12/12 20:31 This 46 yrs old Female presents to ER via Ambulatory with complaints of Knee Pain. kb 20:31 The patient presents with pain. The complaints affect the left knee. Context: The kb problem was sustained at work, resulted from a repetitive motion, the patient can fully bear weight, the patient is able to ambulate, Problem is a result from a previous injury: No. Onset: The symptoms/episode began/occurred last week. Modifying factors: The symptoms are alleviated by nothing. the symptoms are aggravated by nothing. Associated signs and symptoms: The patient has no apparent associated signs or symptoms. Treatment prior to arrival includes: no previous treatment. Severity of symptoms: At their worst the symptoms were moderate, in the emergency department the symptoms are unchanged. The patient has not experienced similar symptoms in the past. The patient has not recently seen a physician. Historical: - Allergies: 18:16 Erythromycin; aa5 18:16 Morphine (Upset stomach); aa5 - PMHx: 18:16 Hypertension; Hypothyroidism; aa5 - PSHx: 18:16 section; aa5 - Immunization history:: Adult Immunizations unknown. - Social history:: Smoking status: Patient denies any tobacco usage or history of. ROS: 20:30 Constitutional: Negative for fever, chills, and weight loss. kb 20:30 MS/extremity: Positive for pain, of the left knee. 20:30 All other systems are negative. Exam: 20:30 Constitutional: This is a well developed, well nourished patient who is awake, alert, kb and in no acute distress. Head/Face: Normocephalic, atraumatic. ENT: Moist Mucous membranes Cardiovascular: Regular rate and rhythm with a normal S1 and S2. No gallops, murmurs, or rubs. No pulse deficits. Respiratory: Respirations even and unlabored. No increased work of breathing. Talking in full sentences Skin: Warm, dry with normal turgor. Normal color. Neuro: Awake and alert, GCS 15, oriented to person, place, time, and situation. Moves all extremities. Normal gait. Psych: Awake, alert, with orientation to person, place and time. Behavior, mood, and affect are within normal limits. 20:30 Musculoskeletal/extremity: Extremities: grossly normal except: noted in the left knee: pain, ROM: intact in all extremities, Circulation is intact in all extremities. Sensation intact. Weight bearing: able to fully bear weight. Vital Signs: 18:15 BP 154 / 86; Pulse 90; Resp 16 S; Temp 97.9(TE); Pulse Ox 100% on R/A; Weight 102.97 kg aa5 (R); Height 5 ft. 1 in. (154.94 cm) (R); 18:15 Body Mass Index 42.89 (102.97 kg, 154.94 cm) aa5 MDM: 18:23 Patient medically screened. kb 20:22 Data reviewed: vital signs, nurses notes. Data interpreted: Pulse oximetry: on room air kb is 100 %. Interpretation: normal. Counseling: I had a detailed discussion with the patient and/or guardian regarding: the historical points, exam findings, and any diagnostic results supporting the discharge/admit diagnosis, radiology results, the need for outpatient follow up, a orthopedic surgeon, to return to the emergency department if symptoms worsen or persist or if there are any questions or concerns that arise at home. 12/12 18:23 Order name: Knee Left 3 View XRAY; Complete Time: 19:17 kb 12/12 18:23 Order name: US Extremity Venous Unilateral Ltd; Complete Time: 19:17 kb 12/12 20:24 Order name: Alfa Wrap; Complete Time: 20:38 kb Administered Medications: No medications were administered Disposition Summary: 12/12/21 20:23 Discharge Ordered Location: Home kb Condition: Stable kb Diagnosis - Pain in left knee kb Followup: kb - With: Emergency Department - When: As needed - Reason: Worsening of condition Followup: kb - With: Private Physician - When: 2 - 3 days - Reason: Recheck today's complaints, Continuance of care, Re-evaluation by your physician Discharge Instructions: - Discharge Summary Sheet kb - Acute Knee Pain, Adult, [id number] kb Forms: - Medication Reconciliation Form kb - Thank You Letter kb - Antibiotic Education kb - Prescription Opioid Use kb Prescriptions: - Diclofenac Sodium 75 mg Oral tablet,delayed release (DR/EC) - take 1 tablet by ORAL route 2 times per day As needed; 30 tablet; Refills: 0, kb Product Selection Permitted Signatures: Dispatcher [employer] Gerri Chan, YVONNE-Phillip RUSSELL-Kassie Joshua, RN RN aa5
[2021-12-12 23:29] VITALS: BP 154/86; TEMP 97.9; O2SAT 100
== END 2021-12-12 20:41 | disposition home or self-care (01) ==
LOC: ER 17:54
DX: M25.562 Pain in left knee (principal); I10 Essential (primary) hypertension; Z88.3 Allergy status to other anti-infective agents; Z88.5 Allergy status to narcotic agent
CPT/HCPCS: 93971; 99283